=== PATIENT | female | born 1985 | race Caucasian/White ===

== ENCOUNTER 2016-08-12 13:47 | Emergency (ER) | payer OTHER, SELFPAY ==
[~2016-08-12 13:47] MED LIST: IRON18TA PO; MAGN250T2 PO; METO-346 PO; METO12TA PO; NORCOTAB PO; SENN1TAB2 PO; VITMTA PO; [UNRECOGNIZED DRUG - CODE] PO
--- NOTE | 2016-08-12 16:02 | REP ---
Clinical: Acute chest pain . Comparison: 06/14/2016. Technique: PA and lateral. Findings: The mediastinum and cardiac silhouette are normal. The lung mccullough are clear and without acute consolidation, effusion, or pneumothorax. The skeletal structures are intact and normal. Impression: 1. No acute cardiopulmonary process. Signed by Codey Garcia MD 08/12/2016 03:53 P
[2016-08-12 16:13] LABS: BASO # 0.1 K/mm3 (0.0-0.2); BASO % 0.9 % (0.0-1.0); EOS # 0.4 K/mm3 (0.0-0.50); EOS % 4.1 % (0.0-3.0); LARGE UNSTAINED CELL # 0.2 K/mm3 (0.0-0.4); LARGE UNSTAINED CELL % 1.7 % (0.0-4.0); LYMPH # 2.4 K/mm3 (1.5-4.5); LYMPH % 21.8 % (24.0-44.0); MEAN CORPUSCULAR HEMOGLOBIN 28.8 pg (27.0-33.0); MEAN CORPUSCULAR HGB CONC 34.1 g/dl (32.0-36.5); MEAN CORPUSCULAR VOLUME 84.3 fl (80.0-96.0); MONO # 0.5 K/mm3 (0.0-0.8); MONO % 4.5 % (0.0-5.0); NEUTROPHILS # 6.9 K/mm3 (1.8-7.7); PLATELET COUNT, AUTOMATED 227 k/mm3 (150-450); RED CELL DISTRIBUTION WIDTH 13.2 % (11.5-14.5); WHITE BLOOD COUNT 10.2 K/mm3 (4.0-10.0)
[2016-08-12 16:25] LABS: ANION GAP 8 MEQ/L (8-16); BLOOD UREA NITROGEN 13 MG/DL (7-18); CALCIUM LEVEL 8.7 MG/DL (8.5-10.1); CARBON DIOXIDE LEVEL 30 MEQ/L (21-32); CHLORIDE LEVEL 104 MEQ/L (98-107); GLOMERULAR FILTRATION RATE > 60.0 (>60); GLUCOSE, FASTING 83 MG/DL (70-105); POTASSIUM SERUM 3.9 MEQ/L (3.5-5.1); SODIUM LEVEL 142 MEQ/L (136-145)
--- NOTE | 2016-08-12 17:11 | EDDOCDS ---
Nurse's Notes [facility] Name: Nhi Linares Age: 31 yrs Sex: Female : 1985 Arrival Date: 08/12/2016 Time: 13:47 Bed I2 / M2 Private MD: Nargis Mari FNP Diagnosis: Chest pain, unspecified Presentation: 08/12 13:57 Presenting complaint: Patient states: chest pain on and off for several days. today kr3 episodes more frequent. reports history of long QT. Aspirin was not taken prior to arrival. Adult Sepsis Screening: The patient does not have new or worsening altered mentation. Patient's respiratory rate is less than 22. Systolic blood pressure is greater than 100. Patient has a qSOFA score of 0- Negative Sepsis Screen. Suicide/Homicide risk assessment- the patient denies having any suicidal and/or homicidal ideations and does not present with any other emotional, behavioral or mental health complaints. Status: Patient is not a fitness services manager or dependent. Transition of care: patient was not received from another setting of care. 13:57 Acuity: LEONARD Level 3 kr3 13:57 Method Of Arrival: Walkin/Carried/Asstd kr3 Triage Assessment: 14:00 General: Appears in no apparent distress, comfortable, Behavior is appropriate for age, kr3 cooperative. Pain: Location: left sided chest with radiation into back Pain currently is 5 out of 10 on a pain scale. HIV screening NA for this visit Offered previously. Cardiovascular: Chest pain is described as vague, radiates back episodes are intermittent began over several days. Respiratory: Respiratory effort is even, unlabored. GI: Denies nausea, vomiting. 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 Toprol XL 50 mg Oral Tb24 1 tab nightly (Last dose: 08/11/2016) 2. multivitamin Oral tab daily 3. Magnesium Oxide Oral daily 4. garlic oral cap daily - PMHx: gall stones; Hypertension; long QT syndrome; Pancreatitis; - PSHx: Cesearean Section; Tubal ligation; jesse right femur; Cholecystectomy; - Social history: Smoking status: Patient states former smoker of tobacco. No barriers to communication noted, The patient speaks fluent Fijian, Speaks appropriately for age. - Family history: Not pertinent. - : The pt / caregiver states he / she is not on anticoagulants. Home medication list is obtained from the patient. - Exposure Risk Screening:: None identified. Screenin:06 Screening information is obtained from the patient. Primary language is Fijian. Fall jam1 risk: No risks identified. Assistance ADL's: requires no assistance with activities of daily living. Abuse/DV Screen: The patient / caregiver reports he/she is: not in a situation that causes fear, pain or injury. Nutritional screening: No deficits noted. Exposure Risk Screening: None identified. Advance Directives: Currently, there is no health care proxy. There is no active DNR order. There is no living will. There is no Power of Nursing Attendant. Advance directive information has not previously been placed in an [facility] medical record. Further advance directive information is declined. home support is adequate. Assessment: 15:54 General: Appears in no apparent distress, well nourished, well groomed, Behavior is kpj appropriate for age, pleasant. Pain: Location: mid-sternal area Pain currently is 4 out of 10 on a pain scale. Pain radiates to left trapezius and left scapular area Quality of pain is described as aching. Neurological: Level of Consciousness is awake, alert, Oriented to person, place, time. Cardiovascular: Capillary refill < 3 seconds in bilateral fingers Edema is absent. Rhythm is sinus rhythm Chest pain quality is aching is located in substernal area radiates to left back neck. Respiratory: Airway is patent Respiratory effort is even, unlabored, Respiratory pattern is regular, symmetrical, Breath sounds are clear bilaterally. GI: Abdomen is non- distended Bowel sounds present X 4 quads. Abd is soft and non tender X 4 quads. Derm: Skin is pink, warm & dry. 16:35 Reassessment: Patient appears in no apparent distress at this time. Patient states kpj feeling better. Patient states symptoms have improved. 17:07 General: Appears in no apparent distress, comfortable, Behavior is appropriate for age, kpj pleasant. Pain: Denies pain. Neurological: Level of Consciousness is awake, alert, Oriented to person, place, time. Cardiovascular: Chest pain is denied. Respiratory: Airway is patent Respiratory effort is even, unlabored, Respiratory pattern is regular, symmetrical. Derm: Skin is pink, warm & dry. Vital Signs: 13:49 BP 143 / 74; Pulse 78; Resp 18 S; Temp 98.0(O); Pulse Ox 98% on R/A; Weight 90.72 kg gr2 (R); Height 5 ft. 10 in. (177.80 cm) (R); Pain 5/10; 15:46 BP 119 / 81; Pulse 65; Resp 18; Temp 98.4; Pulse Ox 98% ; Pain 4/10; jam1 16:53 BP 118 / 84; Pulse 64; Resp 20; Temp 98.6; Pulse Ox 98% ; Pain 2/10; jam1 13:49 Body Mass Index 28.70 (90.72 kg, 177.80 cm) gr2 Vitals: 13:49 Log In Time: August 12, 2016 at 13:49. RN notified that patient meets Red Flag gr2 criteria. ED Course: 13:49 Patient visited by Iam Hyatt. gr2 13:49 Nargis Mari is Private Physician. gr2 13:49 Patient moved to Waiting gr2 13:51 Patient visited by Iam Hyatt. gr2 13:53 Jadyn Ye,RN is Primary Nurse. kr3 13:53 Patient moved to PD2 / 27 kr3 13:58 Triage Initiated kr3 14:01 EKG done. (by ED staff). Reviewed by Edith Stanley MD. ar3 14:02 Patient visited by Trudy Johnston PCA. ar3 14:02 Patient moved to Pre RCE ar3 15:00 Patient moved to I2 / M2 kpj 15:06 Pt greeted and oriented to ED. Patient advised of names of staff involved in care, jam location of call avelar, wait times and NPO status. Patient has correct armband on for positive identification. Placed in gown. Bed in low position. Call light in reach. Side rails up X 1. Door closed. 15:13 [facility] ar2 15:13 Scott Mono MD is Attending Physician. ar2 15:13 Patient visited by Arnold Torres PA-C. ar2 15:51 [facility] Payment Agreement was scanned into [employer] and attached to record. ks16 15:54 Resting quietly. kpj 15:54 The patient / caregiver is instructed regarding the plan of care and ED course. Pulse kpj ox on. 15:54 CIP Sent. kpj 15:54 Magnesium Level Sent. kpj 15:54 MED Profile Sent. kpj 15:54 Troponin Sent. kpj 15:54 D-Dimer Quant Sent. kpj 15:54 CBC with Diff Sent. kpj 16:06 Chest, 2 View (pa\E\lat) Returned. EDMS 16:43 Gerardo Augustine is Referral Physician. ar2 17:07 No apparent distress. kpj 17:07 The patient / caregiver is instructed regarding the plan of care and ED course. kpj 17:07 No IV's were initiated during this patient's visit. No procedures done that require [facility] assistance. Order Results: Lab Order: CBC with Diff; SPEC'M 08/12/16 15:51 Test: WHITE BLOOD COUNT; Value: 10.2; Range: 4.0-10.0; Abnormal: Above high normal; Units: K/mm3; Status: F Test: RED BLOOD COUNT; Value: 4.69; Range: 4.00-5.40; Units: M/mm3; Status: F Test: HEMOGLOBIN; Value: 13.5; Range: 12.0-16.0; Units: g/dl; Status: F Test: HEMATOCRIT; Value: 39.5; Range: 36.0-47.0; Units: %; Status: F Test: MEAN CORPUSCULAR VOLUME; Value: 84.3; Range: 80.0-96.0; Units: fl; Status: F Test: MEAN CORPUSCULAR HEMOGLOBIN; Value: 28.8; Range: 27.0-33.0; Units: pg; Status: F Test: MEAN CORPUSCULAR HGB CONC; Value: 34.1; Range: 32.0-36.5; Units: g/dl; Status: F Test: RED CELL DISTRIBUTION WIDTH; Value: 13.2; Range: 11.5-14.5; Units: %; Status: F Test: PLATELET COUNT, AUTOMATED; Value: 227; Range: 150-450; Units: k/mm3; Status: F Test: NEUTROPHILS %; Value: 67.0; Range: 36.0-66.0; Abnormal: Above high normal; Units: %; Status: F Test: LYMPH %; Value: 21.8; Range: 24.0-44.0; Abnormal: Below low normal; Units: %; Status: F Test: MONO %; Value: 4.5; Range: 0.0-5.0; Units: %; Status: F Test: EOS %; Value: 4.1; Range: 0.0-3.0; Abnormal: Above high normal; Units: %; Status: F Test: BASO %; Value: 0.9; Range: 0.0-1.0; Units: %; Status: F Test: LARGE UNSTAINED CELL %; Value: 1.7; Range: 0.0-4.0; Units: %; Status: F Test: NEUTROPHILS #; Value: 6.9; Range: 1.8-7.7; Units: K/mm3; Status: F Test: LYMPH #; Value: 2.4; Range: 1.5-4.5; Units: K/mm3; Status: F Test: MONO #; Value: 0.5; Range: 0.0-0.8; Units: K/mm3; Status: F Test: EOS #; Value: 0.4; Range: 0.0-0.50; Units: K/mm3; Status: F Test: BASO #; Value: 0.1; Range: 0.0-0.2; Units: K/mm3; Status: F Test: LARGE UNSTAINED CELL #; Value: 0.2; Range: 0.0-0.4; Units: K/mm3; Status: F Lab Order: D-Dimer Quant; SPEC'M 08/12/16 15:51 Test: D-DIMER QUANT; Value: < 270.0; Range: <500; Units: ng/ml; Status: F Lab Order: Troponin; SPEC'M 08/12/16 15:51 Test: TROPONIN I; Value: < 0.02; Range: < 0.10; Units: NG/ML; Status: F Test Note: ; Troponin I Reference Interval for [employer] LOCI: 99th Percentile= 0.00-0.045 ng/ml Risk Stratification: <= 0.10 ng/ml Decreased Risk for Adverse Clinical Events. 0.10-1.50 ng/ml Increased Risk for Adverse Clinical Events. Evaluation of additional criterion and/or repeat testing in 2-6 hours is suggested to rule out myocardial damage. >= 1.50 ng/ml Indicative of Myocardial Injury. Lab Order: MED Profile; SPEC'M 08/12/16 15:51 Test: GLUCOSE, FASTING; Value: 83; Range: 70-105; Units: MG/DL; Status: F Test: BLOOD UREA NITROGEN; Value: 13; Range: 7-18; Units: MG/DL; Status: F Test: CREATININE FOR GFR; Value: 0.60; Range: 0.55-1.02; Units: MG/DL; Status: F Test: GLOMERULAR FILTRATION RATE; Value: > 60.0; Range: >60; Status: F Test: SODIUM LEVEL; Value: 142; Range: 136-145; Units: MEQ/L; Status: F Test: POTASSIUM SERUM; Value: 3.9; Range: 3.5-5.1; Units: MEQ/L; Status: F Test: CHLORIDE LEVEL; Value: 104; Range: 98-107; Units: MEQ/L; Status: F Test: CARBON DIOXIDE LEVEL; Value: 30; Range: 21-32; Units: MEQ/L; Status: F Test: ANION GAP; Value: 8; Range: 8-16; Units: MEQ/L; Status: F Test: CALCIUM LEVEL; Value: 8.7; Range: 8.5-10.1; Units: MG/DL; Status: F Test Note: ; Units are mL/min/1.73 m2 Chronic Kidney Disease Staging per NKF: Stage I & II GFR >=60 Normal to Mildly Decreased Stage III GFR 30-59 Moderately Decreased Stage IV GFR 15-29 Severely Decreased Stage V GFR <15 Very Little GFR Left ESRD GFR <15 on SPECIFICATIONS WRITER Lab Order: Magnesium Level; SPEC'M 08/12/16 15:51 Test: MAGNESIUM LEVEL; Value: 2.0; Range: 1.8-2.4; Units: MG/DL; Status: F Lab Order: CIP; SPEC'08/12/16 15:51 Test: CPK CREATINE PHOSPHOKINASE; Value: 37; Range: 26-192; Units: U/L; Status: F Test: CK-MB VALUE MASS; Value: 1.1; Range: 0.0-3.6; Units: NG/ML; Status: F Test: MB/CK RELATIVE INDEX; Value: 2.97; Range: < OR =4; Status: F Test Note: ; DIAGNOSIS CRITERIA MMB ng/ml Relative Index (RI) NON-AMI < or = 5 N/A MURILLO ZONE > 5 < or = 4 AMI > 5 > 4 Radiology Order: Chest, 2 View (pa\E\lat) Test: Chest, 2 View (pa\E\lat) REASON FOR EXAMINATION: central chest pain; Clinical: Acute chest pain .; ; Comparison: 06/14/2016.; ; Technique: PA and lateral.; ; Findings:; The mediastinum and cardiac silhouette are normal. The lung mccullough are clear and; without acute consolidation, effusion, or pneumothorax. The skeletal structures; are intact and normal.; ; Impression:; 1. No acute cardiopulmonary process.; ; ; Signed by; Codey Garcia MD 08/12/2016 03:53 P; Outcome: 16:44 Discharge ordered by Provider. ar2 17:07 Discharge Assessment: Patient awake, alert and oriented x 3. No cognitive and/or j functional deficits noted. Patient verbalized understanding of disposition instructions. patient administered narcotics - no. The following High Risk Discharge criteria are identified: None. Discharged to home ambulatory. Condition: stable. No special radiology studies were completed. Property sent home with patient. referral to cardiology faxed to Dr Augustine's office per his request.:. 17:10 Patient left the ED. [facility] Signatures: Dispatcher [employer] EDMS Rebecca Mccarthy RN RN kpj Tatum Lau, PUBLIC HEALTH ASSISTANT PUBLIC HEALTH ASSISTANT jam1 Jadyn YeRN RN melo3 Arnold Torres PA-C PA-C ar2 Trudy Johnston, PUBLIC HEALTH ASSISTANT PUBLIC HEALTH ASSISTANT ar3 Iam Hyatt gr2 Lizz Mendoza, Reg Reg ks16 MTDD
--- NOTE | 2016-08-12 17:12 | EDDOCDS ---
Physician Documentation [facility] Name: Nhi Linares Age: 31 yrs Sex: Female : 1985 Arrival Date: 08/12/2016 Time: 13:47 Bed I2 / M2 Private MD: Nargis Mari FNP Disposition: 08/12/16 16:44 Discharged to Home/Self Care. Impression: Chest pain, unspecified. - Condition is Stable. - Discharge Instructions: Nonspecific Chest Pain. - Medication Reconciliation, Local Pharmacy Hours form. - Follow up: Gerardo Augustine; When: Call to arrange an appointment; Reason: Further diagnostic work-up, Recheck today's complaints. Follow up: Emergency Department; When: As needed; Reason: Trouble breathing, Worsening of conditions, persisent severe chest pain, palpitations causing dizziness. - Problem is new. - Symptoms have improved. - Notes: call for follow up, continue home medications Historical: - Allergies: Amoxicillin (Unknown); PENICILLINS (Unknown); - Home Meds: 1. Toprol XL 50 mg Oral Tb24 1 tab nightly (Last dose: 08/11/2016) 2. multivitamin Oral tab daily 3. Magnesium Oxide Oral daily 4. garlic oral cap daily - PMHx: gall stones; Hypertension; long QT syndrome; Pancreatitis; - PSHx: Cesearean Section; Tubal ligation; jesse right femur; Cholecystectomy; - Social history: Smoking status: Patient states former smoker of tobacco. No barriers to communication noted, The patient speaks fluent Turkish, Speaks appropriately for age. - Family history: Not pertinent. - : The pt / caregiver states he / she is not on anticoagulants. Home medication list is obtained from the patient. - Exposure Risk Screening:: None identified. 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 10 in. (177.80 cm) (R); Pain 5/10; 15:46 BP 119 / 81; Pulse 65; Resp 18; Temp 98.4; Pulse Ox 98% ; Pain 4/10; jam1 16:53 BP 118 / 84; Pulse 64; Resp 20; Temp 98.6; Pulse Ox 98% ; Pain 2/10; jam1 13:49 Body Mass Index 28.70 (90.72 kg, 177.80 cm) gr2 MDM: 13:55 ECG WITH READING ER PHYS+CARDIAG ordered. EDMS 15:25 Pulse ox continuous ordered. ar2 15:26 Chest, 2 View (pa\E\lat) Ordered. EDMS 15:26 CBC with Diff Ordered. EDMS 15:26 D-Dimer Quant Ordered. EDMS 15:26 Troponin Ordered. EDMS 15:26 MED Profile Ordered. EDMS 15:26 Magnesium Level Ordered. EDMS 15:26 CIP Ordered. EDMS 15:49 Financial registration complete. ks16 15:51 [facility] Payment Agreement was scanned into [employer] and attached to record. ks16 16:29 CBC with Diff Reviewed. ar2 16:29 D-Dimer Quant Reviewed. ar2 16:29 Troponin Reviewed. ar2 16:29 MED Profile Reviewed. ar2 16:29 Magnesium Level Reviewed. ar2 16:29 CIP Reviewed. ar2 16:29 Chest, 2 View (pa\E\lat) Reviewed. ar2 Signatures: Dispatcher [employer] EDMS Rebecca Mccarthy RN RN kpj Robie, Kathleen, RN RN kr3 Arnold Torres PA-C PA-C ar2 Lizz Mendoza, Reg Reg ks16 The chart was reviewed and I authenticate all verbal orders and agree with the evaluation and treatment provided.Attachments: 15:51 [facility] Payment Agreement ks16 MTDD
--- NOTE | 2016-08-13 08:34 | ECGEPIP ---
Stationary ECG Study [facility] - ED Test Date: 2016-08-12 Pat Name: ALEX RIVAS Department: Room: - Gender: F Automatic Developer: joyce : 1985 Requested By: Scott Conroy Order Number: [id number] Reading MD: Scott Moon Measurements Intervals [place] Rate: 66 P: 66 TX: 152 QRS: 35 QRSD: 104 T: 28 QT: 429 QTc: 453 Interpretive Statements SINUS RHYTHM Electronically Signed On 08-13-2016 8:33:46 EST by Scott Moon
--- NOTE | 2016-08-14 18:12 | EDDOCDS ---
Physician Documentation [facility] Name: Nhi Linares Age: 31 yrs Sex: Female : 1985 Arrival Date: 08/12/2016 Time: 13:47 Bed I2 / M2 Private MD: Nargis Mari FNP Disposition: 08/12/16 16:44 Discharged to Home/Self Care. Impression: Chest pain, unspecified. - Condition is Stable. - Discharge Instructions: Nonspecific Chest Pain. - Medication Reconciliation, Local Pharmacy Hours form. - Follow up: Gerardo Augustine; When: Call to arrange an appointment; Reason: Further diagnostic work-up, Recheck today's complaints. Follow up: Emergency Department; When: As needed; Reason: Trouble breathing, Worsening of conditions, persisent severe chest pain, palpitations causing dizziness. - Problem is new. - Symptoms have improved. - Notes: call for follow up, continue home medications Historical: - Allergies: Amoxicillin (Unknown); PENICILLINS (Unknown); - Home Meds: 1. Toprol XL 50 mg Oral Tb24 1 tab nightly (Last dose: 08/11/2016) 2. multivitamin Oral tab daily 3. Magnesium Oxide Oral daily 4. garlic oral cap daily - PMHx: gall stones; Hypertension; long QT syndrome; Pancreatitis; - PSHx: Cesearean Section; Tubal ligation; jesse right femur; Cholecystectomy; - Social history: Smoking status: Patient states former smoker of tobacco. No barriers to communication noted, The patient speaks fluent Marshallese, Speaks appropriately for age. - Family history: Not pertinent. - : The pt / caregiver states he / she is not on anticoagulants. Home medication list is obtained from the patient. - Exposure Risk Screening:: None identified. 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 10 in. (177.80 cm) (R); Pain 5/10; 15:46 BP 119 / 81; Pulse 65; Resp 18; Temp 98.4; Pulse Ox 98% ; Pain 4/10; jam1 16:53 BP 118 / 84; Pulse 64; Resp 20; Temp 98.6; Pulse Ox 98% ; Pain 2/10; jam1 13:49 Body Mass Index 28.70 (90.72 kg, 177.80 cm) gr2 MDM: 13:55 ECG WITH READING ER PHYS+CARDIAG ordered. EDMS 15:25 Pulse ox continuous ordered. ar2 15:26 Chest, 2 View (pa\E\lat) Ordered. EDMS 15:26 CBC with Diff Ordered. EDMS 15:26 D-Dimer Quant Ordered. EDMS 15:26 Troponin Ordered. EDMS 15:26 MED Profile Ordered. EDMS 15:26 Magnesium Level Ordered. EDMS 15:26 CIP Ordered. EDMS 15:49 Financial registration complete. ks 15:51 [facility] Payment Agreement was scanned into [employer] and attached to record. ks16 16:29 CBC with Diff Reviewed. ar2 16:29 D-Dimer Quant Reviewed. ar2 16:29 Troponin Reviewed. ar2 16:29 MED Profile Reviewed. ar2 16:29 Magnesium Level Reviewed. ar2 16:29 CIP Reviewed. ar2 16:29 Chest, 2 View (pa\E\lat) Reviewed. ar2 08/13 09:38 T-Sheet-- Draft Copy was scanned into [employer] and attached to record. klr 14:14 ECG/EKG was scanned into [employer] and attached to record. gb Signatures: Dispatcher [employer] EDLA Rebecca Mccarthy RN RN kpj Barnhardt, Gloria, Reg Reg gb Jadyn Ye RN RN kr3 Arnold Torres PA-C PAIsela ar2 Lizz Mendoza, Reg Reg ks16 Brenda Bolton The chart was reviewed and I authenticate all verbal orders and agree with the evaluation and treatment provided.Attachments: 08/12 15:51 [facility] Payment Agreement ks16 08/13 09:38 T-Sheet-- Draft Copy klr 14:14 ECG/EKG gb Chart Complete MTDD
--- NOTE | 2016-08-14 18:12 | EDDOCDS ---
Physician Documentation [facility] Name: Nhi Linares Age: 31 yrs Sex: Female : 1985 Arrival Date: 08/12/2016 Time: 13:47 Bed I2 / M2 Private MD: Nargis Mari FNP Disposition: 08/12/16 16:44 Discharged to Home/Self Care. Impression: Chest pain, unspecified. - Condition is Stable. - Discharge Instructions: Nonspecific Chest Pain. - Medication Reconciliation, Local Pharmacy Hours form. - Follow up: Gerardo Augustine; When: Call to arrange an appointment; Reason: Further diagnostic work-up, Recheck today's complaints. Follow up: Emergency Department; When: As needed; Reason: Trouble breathing, Worsening of conditions, persisent severe chest pain, palpitations causing dizziness. - Problem is new. - Symptoms have improved. - Notes: call for follow up, continue home medications Historical: - Allergies: Amoxicillin (Unknown); PENICILLINS (Unknown); - Home Meds: 1. Toprol XL 50 mg Oral Tb24 1 tab nightly (Last dose: 08/11/2016) 2. multivitamin Oral tab daily 3. Magnesium Oxide Oral daily 4. garlic oral cap daily - PMHx: gall stones; Hypertension; long QT syndrome; Pancreatitis; - PSHx: Cesearean Section; Tubal ligation; jesse right femur; Cholecystectomy; - Social history: Smoking status: Patient states former smoker of tobacco. No barriers to communication noted, The patient speaks fluent Italian, Speaks appropriately for age. - Family history: Not pertinent. - : The pt / caregiver states he / she is not on anticoagulants. Home medication list is obtained from the patient. - Exposure Risk Screening:: None identified. 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 10 in. (177.80 cm) (R); Pain 5/10; 15:46 BP 119 / 81; Pulse 65; Resp 18; Temp 98.4; Pulse Ox 98% ; Pain 4/10; jam1 16:53 BP 118 / 84; Pulse 64; Resp 20; Temp 98.6; Pulse Ox 98% ; Pain 2/10; jam1 13:49 Body Mass Index 28.70 (90.72 kg, 177.80 cm) gr2 MDM: 13:55 ECG WITH READING ER PHYS+CARDIAG ordered. EDMS 15:25 Pulse ox continuous ordered. ar2 15:26 Chest, 2 View (pa\E\lat) Ordered. EDMS 15:26 CBC with Diff Ordered. EDMS 15:26 D-Dimer Quant Ordered. EDMS 15:26 Troponin Ordered. EDMS 15:26 MED Profile Ordered. EDMS 15:26 Magnesium Level Ordered. EDMS 15:26 CIP Ordered. EDMS 15:49 Financial registration complete. ks 15:51 [facility] Payment Agreement was scanned into [employer] and attached to record. ks16 16:29 CBC with Diff Reviewed. ar2 16:29 D-Dimer Quant Reviewed. ar2 16:29 Troponin Reviewed. ar2 16:29 MED Profile Reviewed. ar2 16:29 Magnesium Level Reviewed. ar2 16:29 CIP Reviewed. ar2 16:29 Chest, 2 View (pa\E\lat) Reviewed. ar2 08/13 09:38 T-Sheet-- Draft Copy was scanned into [employer] and attached to record. klr 14:14 ECG/EKG was scanned into [employer] and attached to record. gb Signatures: Dispatcher [employer] EDNE Rebecca Mccarthy RN RN kpj Barnhardt, Gloria, Reg Reg gb Jadyn Ye RN RN kr3 Arnold Torres PA-C PAIsela ar2 Lizz Mendoza, Reg Reg ks16 Brenda Bolton The chart was reviewed and I authenticate all verbal orders and agree with the evaluation and treatment provided.Attachments: 08/12 15:51 [facility] Payment Agreement [email or web address] 08/13 09:38 T-Sheet-- Draft Copy klr 14:14 ECG/EKG gb Chart Complete MTDD
--- NOTE | 2016-08-14 18:12 | EDDOCDS ---
Nurse's Notes [facility] Name: Alex Rivas Age: 31 yrs Sex: Female : 1985 Arrival Date: 08/12/2016 Time: 13:47 Bed I2 / M2 Private MD: Nargis Mari FNP Diagnosis: Chest pain, unspecified Presentation: 08/12 13:57 Presenting complaint: Patient states: chest pain on and off for several days. today kr3 episodes more frequent. reports history of long QT. Aspirin was not taken prior to arrival. Adult Sepsis Screening: The patient does not have new or worsening altered mentation. Patient's respiratory rate is less than 22. Systolic blood pressure is greater than 100. Patient has a qSOFA score of 0- Negative Sepsis Screen. Suicide/Homicide risk assessment- the patient denies having any suicidal and/or homicidal ideations and does not present with any other emotional, behavioral or mental health complaints. Status: Patient is not a lab support service tech or dependent. Transition of care: patient was not received from another setting of care. 13:57 Acuity: LEONARD Level 3 kr3 13:57 Method Of Arrival: Walkin/Carried/Asstd kr3 Triage Assessment: 14:00 General: Appears in no apparent distress, comfortable, Behavior is appropriate for age, kr3 cooperative. Pain: Location: left sided chest with radiation into back Pain currently is 5 out of 10 on a pain scale. HIV screening NA for this visit Offered previously. Cardiovascular: Chest pain is described as vague, radiates back episodes are intermittent began over several days. Respiratory: Respiratory effort is even, unlabored. GI: Denies nausea, vomiting. PUBLISHING DIRECTOR: 14:00 LMP 07/28/2016 kr3 Historical: - Allergies: Amoxicillin (Unknown); PENICILLINS (Unknown); - Home Meds: 1. Toprol XL 50 mg Oral Tb24 1 tab nightly (Last dose: 08/11/2016) 2. multivitamin Oral tab daily 3. Magnesium Oxide Oral daily 4. garlic oral cap daily - PMHx: gall stones; Hypertension; long QT syndrome; Pancreatitis; - PSHx: Cesearean Section; Tubal ligation; jesse right femur; Cholecystectomy; - Social history: Smoking status: Patient states former smoker of tobacco. No barriers to communication noted, The patient speaks fluent Bruneian, Speaks appropriately for age. - Family history: Not pertinent. - : The pt / caregiver states he / she is not on anticoagulants. Home medication list is obtained from the patient. - Exposure Risk Screening:: None identified. Screenin:06 Screening information is obtained from the patient. Primary language is Bruneian. Fall jam1 risk: No risks identified. Assistance ADL's: requires no assistance with activities of daily living. Abuse/DV Screen: The patient / caregiver reports he/she is: not in a situation that causes fear, pain or injury. Nutritional screening: No deficits noted. Exposure Risk Screening: None identified. Advance Directives: Currently, there is no health care proxy. There is no active DNR order. There is no living will. There is no Power of Credit Verification Clerk. Advance directive information has not previously been placed in an [facility] medical record. Further advance directive information is declined. home support is adequate. Assessment: 15:54 General: Appears in no apparent distress, well nourished, well groomed, Behavior is kpj appropriate for age, pleasant. Pain: Location: mid-sternal area Pain currently is 4 out of 10 on a pain scale. Pain radiates to left trapezius and left scapular area Quality of pain is described as aching. Neurological: Level of Consciousness is awake, alert, Oriented to person, place, time. Cardiovascular: Capillary refill < 3 seconds in bilateral fingers Edema is absent. Rhythm is sinus rhythm Chest pain quality is aching is located in substernal area radiates to left back neck. Respiratory: Airway is patent Respiratory effort is even, unlabored, Respiratory pattern is regular, symmetrical, Breath sounds are clear bilaterally. GI: Abdomen is non- distended Bowel sounds present X 4 quads. Abd is soft and non tender X 4 quads. Derm: Skin is pink, warm & dry. 16:35 Reassessment: Patient appears in no apparent distress at this time. Patient states kpj feeling better. Patient states symptoms have improved. 17:07 General: Appears in no apparent distress, comfortable, Behavior is appropriate for age, kpj pleasant. Pain: Denies pain. Neurological: Level of Consciousness is awake, alert, Oriented to person, place, time. Cardiovascular: Chest pain is denied. Respiratory: Airway is patent Respiratory effort is even, unlabored, Respiratory pattern is regular, symmetrical. Derm: Skin is pink, warm & dry. Vital Signs: 13:49 BP 143 / 74; Pulse 78; Resp 18 S; Temp 98.0(O); Pulse Ox 98% on R/A; Weight 90.72 kg gr2 (R); Height 5 ft. 10 in. (177.80 cm) (R); Pain 5/10; 15:46 BP 119 / 81; Pulse 65; Resp 18; Temp 98.4; Pulse Ox 98% ; Pain 4/10; jam1 16:53 BP 118 / 84; Pulse 64; Resp 20; Temp 98.6; Pulse Ox 98% ; Pain 2/10; jam1 13:49 Body Mass Index 28.70 (90.72 kg, 177.80 cm) gr2 Vitals: 13:49 Log In Time: August 12, 2016 at 13:49. RN notified that patient meets Red Flag gr2 criteria. ED Course: 13:49 Patient visited by Iam Hyatt. gr2 13:49 Nargis Mari is Private Physician. gr2 13:49 Patient moved to Waiting gr2 13:51 Patient visited by Iam Hyatt. gr2 13:53 Jadyn Ye,RN is Primary Nurse. kr3 13:53 Patient moved to PD2 / 27 kr3 13:58 Triage Initiated kr3 14:01 EKG done. (by ED staff). Reviewed by Edith Stanley MD. ar3 14:02 Patient visited by Trudy Johnston PCA. ar3 14:02 Patient moved to Pre RCE ar3 15:00 Patient moved to I2 / M2 kpj 15:06 Pt greeted and oriented to ED. Patient advised of names of staff involved in care, jam location of call avelar, wait times and NPO status. Patient has correct armband on for positive identification. Placed in gown. Bed in low position. Call light in reach. Side rails up X 1. Door closed. 15:13 [facility] ar2 15:13 Scott Moon MD is Attending Physician. ar2 15:13 Patient visited by Arnold Torres PA-C. ar2 15:51 [facility] [place] was [place] into [employer] and attached to record. ks16 15:54 Resting quietly. kpj 15:54 The patient / caregiver is instructed regarding the plan of care and ED course. Pulse kpj ox on. 15:54 CIP Sent. kpj 15:54 Magnesium Level Sent. kpj 15:54 MED Profile Sent. kpj 15:54 Troponin Sent. kpj 15:54 D-Dimer Quant Sent. kpj 15:54 CBC with Diff Sent. kpj 16:06 Chest, 2 View (pa\E\lat) Returned. EDMS 16:43 Gerardo Augustine is Referral Physician. ar2 17:07 No apparent distress. kpj 17:07 The patient / caregiver is instructed regarding the plan of care and ED course. kpj 17:07 No IV's were initiated during this patient's visit. No procedures done that require [facility] assistance. 08/13 08:51 EKG-ADULT Returned. EDMS 09:38 T-Sheet-- Draft Copy was scanned into Singular and attached to record. klr 14:14 ECG/EKG was scanned into [employer] and attached to record. gb Order Results: Lab Order: CBC with Diff; SPEC'M 08/12/16 15:51 Test: WHITE BLOOD COUNT; Value: 10.2; Range: 4.0-10.0; Abnormal: Above high normal; Units: K/mm3; Status: F Test: RED BLOOD COUNT; Value: 4.69; Range: 4.00-5.40; Units: M/mm3; Status: F Test: HEMOGLOBIN; Value: 13.5; Range: 12.0-16.0; Units: g/dl; Status: F Test: HEMATOCRIT; Value: 39.5; Range: 36.0-47.0; Units: %; Status: F Test: MEAN CORPUSCULAR VOLUME; Value: 84.3; Range: 80.0-96.0; Units: fl; Status: F Test: MEAN CORPUSCULAR HEMOGLOBIN; Value: 28.8; Range: 27.0-33.0; Units: pg; Status: F Test: MEAN CORPUSCULAR HGB CONC; Value: 34.1; Range: 32.0-36.5; Units: g/dl; Status: F Test: RED CELL DISTRIBUTION WIDTH; Value: 13.2; Range: 11.5-14.5; Units: %; Status: F Test: PLATELET COUNT, AUTOMATED; Value: 227; Range: 150-450; Units: k/mm3; Status: F Test: NEUTROPHILS %; Value: 67.0; Range: 36.0-66.0; Abnormal: Above high normal; Units: %; Status: F Test: LYMPH %; Value: 21.8; Range: 24.0-44.0; Abnormal: Below low normal; Units: %; Status: F Test: MONO %; Value: 4.5; Range: 0.0-5.0; Units: %; Status: F Test: EOS %; Value: 4.1; Range: 0.0-3.0; Abnormal: Above high normal; Units: %; Status: F Test: BASO %; Value: 0.9; Range: 0.0-1.0; Units: %; Status: F Test: LARGE UNSTAINED CELL %; Value: 1.7; Range: 0.0-4.0; Units: %; Status: F Test: NEUTROPHILS #; Value: 6.9; Range: 1.8-7.7; Units: K/mm3; Status: F Test: LYMPH #; Value: 2.4; Range: 1.5-4.5; Units: K/mm3; Status: F Test: MONO #; Value: 0.5; Range: 0.0-0.8; Units: K/mm3; Status: F Test: EOS #; Value: 0.4; Range: 0.0-0.50; Units: K/mm3; Status: F Test: BASO #; Value: 0.1; Range: 0.0-0.2; Units: K/mm3; Status: F Test: LARGE UNSTAINED CELL #; Value: 0.2; Range: 0.0-0.4; Units: K/mm3; Status: F Lab Order: D-Dimer Quant; SPEC'M 08/12/16 15:51 Test: D-DIMER QUANT; Value: < 270.0; Range: <500; Units: ng/ml; Status: F Lab Order: Troponin; SPEC'M 08/12/16 15:51 Test: TROPONIN I; Value: < 0.02; Range: < 0.10; Units: NG/ML; Status: F Test Note: ; Troponin I Reference Interval for Siemens [place] LOCI: 99th Percentile= 0.00-0.045 ng/ml Risk Stratification: <= 0.10 ng/ml Decreased Risk for Adverse Clinical Events. 0.10-1.50 ng/ml Increased Risk for Adverse Clinical Events. Evaluation of additional criterion and/or repeat testing in 2-6 hours is suggested to rule out myocardial damage. >= 1.50 ng/ml Indicative of Myocardial Injury. Lab Order: MED Profile; SPEC'08/12/16 15:51 Test: GLUCOSE, FASTING; Value: 83; Range: 70-105; Units: MG/DL; Status: F Test: BLOOD UREA NITROGEN; Value: 13; Range: 7-18; Units: MG/DL; Status: F Test: CREATININE FOR GFR; Value: 0.60; Range: 0.55-1.02; Units: MG/DL; Status: F Test: GLOMERULAR FILTRATION RATE; Value: > 60.0; Range: >60; Status: F Test: SODIUM LEVEL; Value: 142; Range: 136-145; Units: MEQ/L; Status: F Test: POTASSIUM SERUM; Value: 3.9; Range: 3.5-5.1; Units: MEQ/L; Status: F Test: CHLORIDE LEVEL; Value: 104; Range: 98-107; Units: MEQ/L; Status: F Test: CARBON DIOXIDE LEVEL; Value: 30; Range: 21-32; Units: MEQ/L; Status: F Test: ANION GAP; Value: 8; Range: 8-16; Units: MEQ/L; Status: F Test: CALCIUM LEVEL; Value: 8.7; Range: 8.5-10.1; Units: MG/DL; Status: F Test Note: ; Units are mL/min/1.73 m2 Chronic Kidney Disease Staging per NKF: Stage I & II GFR >=60 Normal to Mildly Decreased Stage III GFR 30-59 Moderately Decreased Stage IV GFR 15-29 Severely Decreased Stage V GFR <15 Very Little GFR Left ESRD GFR <15 on COREMAKER SUPERVISOR Lab Order: Magnesium Level; SPEC'08/12/16 15:51 Test: MAGNESIUM LEVEL; Value: 2.0; Range: 1.8-2.4; Units: MG/DL; Status: F Lab Order: CIP; SPEC'08/12/16 15:51 Test: CPK CREATINE PHOSPHOKINASE; Value: 37; Range: 26-192; Units: U/L; Status: F Test: CK-MB VALUE MASS; Value: 1.1; Range: 0.0-3.6; Units: NG/ML; Status: F Test: MB/CK RELATIVE INDEX; Value: 2.97; Range: < OR =4; Status: F Test Note: ; DIAGNOSIS CRITERIA MMB ng/ml Relative Index (RI) NON-AMI < or = 5 N/A MURILLO ZONE > 5 < or = 4 AMI > 5 > 4 Radiology Order: EKG-ADULT Test: EKG-ADULT REASON FOR EXAMINATION: Chest Pain; Stationary ECG Study; [facility] - ED; ; Test Date: 2016-08-12; Pat Name: ALEX RIVAS Department:; Room: -; Gender: F 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 The lung mccullough are clear and; without acute consolidation, effusion, or pneumothorax. The skeletal structures; are intact and normal.; ; Impression:; 1. No acute cardiopulmonary process.; ; ; Signed by; Codey Garcia MD 08/12/2016 03:53 P; Outcome: 08/12 16:44 Discharge ordered by Provider. ar2 17:07 Discharge Assessment: Patient awake, alert and oriented x 3. No cognitive and/or kpj functional deficits noted. Patient verbalized understanding of disposition instructions. patient administered narcotics - no. The following High Risk Discharge criteria are identified: None. Discharged to home ambulatory. Condition: stable. No special radiology studies were completed. Property sent home with patient. referral to cardiology faxed to Dr Augustine's office per his request.:. 17:10 Patient left the ED. [facility] Signatures: Dispatcher [employer] EDMS Rebecca Mccarthy, RN RN j Tatum Lau, PATTERN SHOP SUPERVISOR PATTERN SHOP SUPERVISOR jam1 Miranda Wagner, Reg Reg gb Jadyn Ye RN RN kr3 Arnold Torres, WILLIAM PAIsela ar2 Trudy Johnston, PATTERN SHOP SUPERVISOR PATTERN SHOP SUPERVISOR ar3 Iam Hyatt gr2 Lizz Mendoza, Reg Reg ks16 Brenda Bolton Chart Complete MTDD
== END 2016-08-12 17:10 | disposition home or self-care (01) ==
LOC: M ED 13:47
DX: R07.9 Chest pain, unspecified (principal); I10 Essential (primary) hypertension; I45.81 Long QT syndrome; Z79.899 Other long term (current) drug therapy; Z88.0 Allergy status to penicillin; Z87.891 Personal history of nicotine dependence

== ENCOUNTER 2016-09-18 12:14 | Emergency (ER) | payer OTHER ==
[~2016-09-18] VITALS: Ht 180.3 cm; Wt 93.0 kg
[2016-09-18] MEDS ORDERED: METO37.5 PO (12:26)
[2016-09-18] MEDS ORDERED: DULO30CA PO (12:26)
--- NOTE | 2016-09-18 13:41 | REP ---
Clinical: Left calf pain . Technique: Watson scale and color Doppler evaluation using linear high frequency transducer. Findings: Ultrasound examination of the left lower extremity deep venous structures from the common femoral vein to the popliteal vein demonstrates normal compressibility flow and wave patterns in response to respiration and augmentation. There is no evidence for deep venous thrombosis. Impression: No evidence for deep venous thrombosis. Signed by Codey Garcia MD 09/18/2016 01:32 P
[2016-09-18 14:24] VITALS: BP 128/81
== END 2016-09-18 14:24 | disposition home or self-care (01) ==
LOC: M ED 12:43
DX: S86.112A Strain of other muscle(s) and tendon(s) of posterior muscle group at lower leg level, left leg, initial encounter (principal); X58.XXXA Exposure to other specified factors, initial encounter; Y92.89 Other specified places as the place of occurrence of the external cause; Y93.89 Activity, other specified; Y99.8 Other external cause status; Z87.891 Personal history of nicotine dependence; Z88.0 Allergy status to penicillin; Z79.899 Other long term (current) drug therapy; I10 Essential (primary) hypertension; Z87.442 Personal history of urinary calculi

== ENCOUNTER 2016-11-22 16:26 | Emergency (ER) | payer OTHER ==
[~2016-11-22] VITALS: Ht 177.8 cm; Wt 95.3 kg
[~2016-11-22 16:26] MED LIST changes: +DULO30CA PO; +METO37.5 PO
[2016-11-22] MEDS ORDERED: DOXY100T (16:32)
[2016-11-22] MEDS ORDERED: ONDANSETRON 4MG/2ML VIAL (J2405) IV ONE (17:00)
[2016-11-22] MEDS ORDERED: KETOROLAC 30 MG/ML VIAL (J1885) IV ONE (17:00)
[2016-11-22] MEDS ORDERED: NS 1,000 ML IV ONE (17:00)
[2016-11-22 17:16] LABS: BASO # 0.1 K/mm3 (0.0-0.2); EOS # 0.6 K/mm3 (0.0-0.50); EOS % 5.1 % (0.0-3.0); LARGE UNSTAINED CELL # 0.1 K/mm3 (0.0-0.4); LARGE UNSTAINED CELL % 1.2 % (0.0-4.0); LYMPH # 3.1 K/mm3 (1.5-4.5); LYMPH % 28.8 % (24.0-44.0); MEAN CORPUSCULAR HEMOGLOBIN 28.7 pg (27.0-33.0); MEAN CORPUSCULAR HGB CONC 34.6 g/dl (32.0-36.5); MEAN CORPUSCULAR VOLUME 83.1 fl (80.0-96.0); MONO # 0.5 K/mm3 (0.0-0.8); MONO % 4.5 % (0.0-5.0); NEUTROPHILS # 6.5 K/mm3 (1.8-7.7); NEUTROPHILS % 59.4 % (36.0-66.0); PLATELET COUNT, AUTOMATED 260 k/mm3 (150-450); RED CELL DISTRIBUTION WIDTH 13.7 % (11.5-14.5); WHITE BLOOD COUNT 10.9 K/mm3 (4.0-10.0)
[2016-11-22 17:43] LABS: ALBUMIN 3.6 GM/DL (3.2-5.2); ALBUMIN/GLOBULIN RATIO 0.97 (1.00-1.93); ALKALINE PHOSPHATASE 82 U/L (45-117); ALT/SGPT 29 U/L (12-78); ANION GAP 7 MEQ/L (8-16); AST/SGOT 20 U/L (15-37); BILIRUBIN,DIRECT < 0.1 MG/DL (0.0-0.2); BILIRUBIN,TOTAL 0.3 MG/DL (0.2-1.0); BLOOD UREA NITROGEN 9 MG/DL (7-18); CALCIUM LEVEL 8.5 MG/DL (8.5-10.1); CARBON DIOXIDE LEVEL 27 MEQ/L (21-32); CHLORIDE LEVEL 108 MEQ/L (98-107); CREATININE FOR GFR 0.66 MG/DL (0.55-1.02); GLOMERULAR FILTRATION RATE > 60.0 (>60); GLUCOSE, FASTING 106 MG/DL (70-105); SODIUM LEVEL 142 MEQ/L (136-145); TOTAL PROTEIN 7.3 GM/DL (6.4-8.2)
--- NOTE | 2016-11-22 18:18 | REP ---
Clinical: Renal colic. Findings: Liver, spleen, pancreas, bilateral adrenal glands and kidneys are normal for noncontrast evaluation. Specifically, there is no hydronephrosis, perinephric stranding, intrarenal or obstructing ureteral calculi. The patient is status post cholecystectomy. The enteric system is without obstruction or acute inflammatory process and a normal terminal ileum and appendix are identified in the right lower quadrant. Pelvis demonstrates normal bladder and age-appropriate uterus/adnexa. Sigmoid diverticula noted without acute diverticulitis. No free fluid or ascites. No free air. No obvious adenopathy. Abdominal aorta without aneurysm. Musculoskeletal structures are intact. Lung bases are clear. Impression: Normal noncontrast CT of the abdomen and pelvis. Signed by Codey Garcia MD 11/22/2016 06:08 P
[2016-11-22 18:25] VITALS: BP 127/64
== END 2016-11-22 18:42 | disposition home or self-care (01) ==
LOC: M ED 17:02
DX: R10.11 Right upper quadrant pain (principal); E66.9 Obesity, unspecified; I10 Essential (primary) hypertension; Z79.899 Other long term (current) drug therapy; Z88.0 Allergy status to penicillin; Z88.1 Allergy status to other antibiotic agents
CPT/HCPCS: 74176; 80048; 80076; 81001; 81025; 83690; 85025; 96374; 96375; 99284; J1885; J2405

== ENCOUNTER 2016-12-04 15:47 | Emergency (ER) | payer OTHER ==
[~2016-12-04] VITALS: Ht 177.8 cm; Wt 97.5 kg
[2016-12-04 15:47] VITALS: BP 171/95
[~2016-12-04 15:47] MED LIST changes: +DOXY100T
[2016-12-04] MEDS ORDERED: FLUT1SPR2 (15:55)
[2016-12-04] MEDS ORDERED: DULO1CAP (15:55)
== END 2016-12-04 16:59 | disposition home or self-care (01) ==
LOC: M ED 16:54
DX: F43.0 Acute stress reaction (principal); R51 Headache; Z90.49 Acquired absence of other specified parts of digestive tract; Z79.899 Other long term (current) drug therapy; Z88.0 Allergy status to penicillin; Z88.1 Allergy status to other antibiotic agents

== ENCOUNTER 2018-05-28 16:34 | Emergency (ER) | payer OTHER ==
[2018-05-28] MEDS: NS 1,000 ML IV (17:54)
[2018-05-28] MEDS: ONDANSETRON 4MG/2ML VIAL (J2405) IV (17:54)
[2018-05-28 17:58] LABS: BASO # 0.1 10^3/uL (0.0-0.2); BASO % 0.8 % (0.0-1.0); EOS # 0.3 10^3/uL (0.0-0.50); EOS % 2.3 % (0.0-3.0); HEMATOCRIT 45.2 % (36.0-47.0); HEMOGLOBIN 15.3 g/dl (12.0-15.5); IMMATURE GRANULOCYTE % 0.5 % (0-3.0); KETONE, URINE AUTO RFX NEGATIVE (NEGATIVE); LEUKOCYTE ESTERASE UR AUTO RFX TRACE (NEGATIVE); LYMPH # 2.8 10^3/uL (1.5-4.5); LYMPH % 21.7 % (24.0-44.0); MEAN CORPUSCULAR HEMOGLOBIN 29.6 pg (27.0-33.0); MEAN CORPUSCULAR HGB CONC 33.8 g/dl (32.0-36.5); MEAN CORPUSCULAR VOLUME 87.4 fl (80.0-96.0); MONO # 0.8 10^3/uL (0.0-0.8); MONO % 6.3 % (0.0-5.0); MUCUS, URINE RFX SMALL (NEGATIVE); NEUTROPHILS # 8.8 10^3/uL (1.8-7.7); NEUTROPHILS % 68.4 % (36.0-66.0); NITRITE, URINE AUTO RFX NEGATIVE (NEGATIVE); PLATELET COUNT, AUTOMATED 253 10^3/uL (150-450); RBC, URINE AUTO RFX 3 /HPF (0-3); RED BLOOD COUNT 5.17 10^6/uL (4.00-5.40); RED CELL DISTRIBUTION WIDTH 13.2 % (11.5-14.5); SQUAM EPITHELIAL CELL UR AURFX 2 /HPF (0-6); WBC, URINE AUTO RFX 2 /HPF (0-3); WHITE BLOOD COUNT 12.8 10^3/uL (4.0-10.0)
[2018-05-28] MEDS: MORPHINE 4 MG/ML 1ML VIAL/SYRINGE (J2270) IV ×2 (17:59→18:45)
[2018-05-28 18:10] LABS: INR 0.99; PROTHROMBIN TIME 13.2 SECONDS (12.1-14.4)
[2018-05-28 18:11] LABS: PARTIAL THROMBOPLASTIN TIME 30.9 SECONDS (25.4-37.6)
[2018-05-28 18:28] LABS: CONTROL LINE MONO INT CTR LINE PRESENT; MONO SCRN NEGATIVE (NEGATIVE)
[2018-05-28 18:29] LABS: ALBUMIN 3.9 GM/DL (3.2-5.2); ALKALINE PHOSPHATASE 85 U/L (45-117); ALT/SGPT 51 U/L (12-78); AMYLASE 34 U/L (25-115); ANION GAP 8 MEQ/L (8-16); AST/SGOT 25 U/L (7-37); BILIRUBIN,DIRECT < 0.1 MG/DL (0.0-0.2); BILIRUBIN,TOTAL 0.4 MG/DL (0.2-1.0); BLOOD UREA NITROGEN 8 MG/DL (7-18); CALCIUM LEVEL 8.6 MG/DL (8.5-10.1); CARBON DIOXIDE LEVEL 26 MEQ/L (21-32); CHLORIDE LEVEL 105 MEQ/L (98-107); CREATININE FOR GFR 0.68 MG/DL (0.55-1.30); GLOMERULAR FILTRATION RATE > 60.0 (>60); GLUCOSE, FASTING 120 MG/DL (70-100); LIPASE 117 U/L (73-393); POTASSIUM SERUM 3.5 MEQ/L (3.5-5.1); SODIUM LEVEL 139 MEQ/L (136-145); TOTAL PROTEIN 7.8 GM/DL (6.4-8.2)
[2018-05-28] MEDS ORDERED: ISOVUE-370 76% 100ML VIAL (Q9967) As Ordered (18:30)
[2018-05-28] MEDS: PANTOPRAZOLE 40MG INJ (PROTONIX) (C9113) IV (20:00)
[2018-05-28] MEDS: GI COCKTAIL 50ML BTL(HYOSCYAMINE/MAALOX/LIDOCAINE VISCOUS)(1:3:1) PO (20:00)
[2018-05-28] MEDS: KETOROLAC 30 MG/ML VIAL (J1885) IV (20:45)
== END 2018-05-28 22:33 | disposition home or self-care (01) ==
LOC: M ED 16:34
DX: R10.11 Right upper quadrant pain (principal); R11.0 Nausea; I10 Essential (primary) hypertension; Z87.19 Personal history of other diseases of the digestive system; Z87.442 Personal history of urinary calculi; Z88.0 Allergy status to penicillin; F17.210 Nicotine dependence, cigarettes, uncomplicated
CPT/HCPCS: C9113

== ENCOUNTER 2018-07-10 15:29 | Emergency (ER) | payer OTHER ==
[~2018-07-10] VITALS: Ht 177.8 cm; Wt 104.5 kg
[~2018-07-10 15:29] MED LIST changes: +DULO1CAP; +FLUT1SPR2; +GARL400T8 PO; +KETO10TAB PO; -MAGN250T2 PO; +MAGN250T7 PO; -METO12TA PO; +METO1TAB87 PO; +ZOFR4TAB14 PO; -[UNRECOGNIZED DRUG - CODE] PO
[2018-07-10] MEDS ORDERED: ONDANSETRON 4MG/2ML VIAL (J2405) IV ONE (16:00)
[2018-07-10] MEDS ORDERED: SUCRALFATE 1 GM TAB PO ONE (16:00)
[2018-07-10] MEDS ORDERED: GI COCKTAIL 50ML BTL(HYOSCYAMINE/MAALOX/LIDOCAINE VISCOUS)(1:3:1) PO ONE (16:00)
[2018-07-10 16:20] LABS: BASO # 0.1 10^3/uL (0.0-0.2); BASO % 0.7 % (0.0-1.0); EOS # 0.3 10^3/uL (0.0-0.50); EOS % 2.9 % (0.0-3.0); HEMOGLOBIN 14.7 g/dl (12.0-15.5); LYMPH # 2.3 10^3/uL (1.5-4.5); LYMPH % 19.4 % (24.0-44.0); MEAN CORPUSCULAR HEMOGLOBIN 28.9 pg (27.0-33.0); MEAN CORPUSCULAR HGB CONC 33.4 g/dl (32.0-36.5); MEAN CORPUSCULAR VOLUME 86.4 fl (80.0-96.0); MONO # 0.8 10^3/uL (0.0-0.8); MONO % 6.7 % (0.0-5.0); NEUTROPHILS # 8.3 10^3/uL (1.8-7.7); NEUTROPHILS % 69.9 % (36.0-66.0); PLATELET COUNT, AUTOMATED 231 10^3/uL (150-450); RED BLOOD COUNT 5.09 10^6/uL (4.00-5.40); WHITE BLOOD COUNT 11.8 10^3/uL (4.0-10.0)
[2018-07-10 16:49] LABS: ALBUMIN 3.9 GM/DL (3.2-5.2); ALT/SGPT 26 U/L (12-78); BILIRUBIN,DIRECT < 0.1 MG/DL (0.0-0.2); BILIRUBIN,TOTAL 0.3 MG/DL (0.2-1.0); BLOOD UREA NITROGEN 10 MG/DL (7-18); CARBON DIOXIDE LEVEL 25 MEQ/L (21-32); CHLORIDE LEVEL 107 MEQ/L (98-107); CREATININE FOR GFR 0.62 MG/DL (0.55-1.30); GLOMERULAR FILTRATION RATE > 60.0 (>60); GLUCOSE, FASTING 90 MG/DL (70-100); LIPASE 136 U/L (73-393); POTASSIUM SERUM 3.9 MEQ/L (3.5-5.1); SODIUM LEVEL 140 MEQ/L (136-145); TOTAL PROTEIN 7.5 GM/DL (6.4-8.2)
[2018-07-10] MEDS ORDERED: diphenhydrAMINE INJ 50MG/ML VIAL (J1200) IV STA (16:55)
[2018-07-10] MEDS ORDERED: ISOVUE-370 76% 100ML VIAL (Q9967) As Ordered ONE (17:00)
[2018-07-10] MEDS ORDERED: MORPHINE 4 MG/ML 1ML VIAL/SYRINGE (J2270) IV ONE (17:00)
[2018-07-10 17:29] VITALS: BP 137/84
[2018-07-10] MEDS ORDERED: CARA1TAB6 PO (17:32)
[2018-07-10] MEDS ORDERED: OMEP40CA2 PO (17:32)
--- NOTE | 2018-07-11 07:05 | REP ---
CT abdomen and pelvis with IV and without oral contrast: History: Right upper quadrant pain. Comparison study: May 28, 2018. CT contrast dose: 100 ml of intravenous Isovue [address] findings: Digital preliminary certified novell engineer radiograph shows clips in the right upper quadrant. The bowel gas pattern is normal. The lung bases are clear on axial CT images. There is mild diffuse fatty infiltration of the liver. There is a small 3 mm central right lobe hepatic cyst, unchanged. Spleen is normal in size and homogeneous in texture. No adrenal lesion is seen. No pancreatic abnormalities observed. The kidneys enhance symmetrically and appear morphologically intact. A normal appendix is seen draped across the iliac vessels in the central pelvis. There is a follicle cyst in the right ovary measuring 2.2 cm in diameter. No uterine abnormality or left ovarian abnormality is seen. Small and large intestinal bowel loops are normal in the abdomen and pelvis. Urinary bladder is unremarkable. No bony destructive lesion is seen. Impression: Status post cholecystectomy. Mild fatty infiltration of the liver. Normal appendix. No acute abdominal or pelvic abnormality. Electronically Signed by Colby Gannon MD 07/11/2018 09:06 A
== END 2018-07-10 17:39 | disposition home or self-care (01) ==
LOC: M ED 15:29
DX: R10.13 Epigastric pain (principal); R11.0 Nausea; I10 Essential (primary) hypertension; Z87.442 Personal history of urinary calculi; F17.210 Nicotine dependence, cigarettes, uncomplicated; Z88.0 Allergy status to penicillin; Z79.899 Other long term (current) drug therapy
CPT/HCPCS: 74177; 80048; 80076; 81001; 81025; 83690; 85025; 96374; 96375; 99284; J1200; J2270; J2405; Q9967

== ENCOUNTER 2018-08-20 13:07 | Day surgery (SDC) | payer OTHER ==
[~2018-08-20] VITALS: Ht 177.8 cm; Wt 109.3 kg
[~2018-08-20 13:07] MED LIST changes: +CARA1TAB6 PO; +COQ-100C2 PO; +GARL1000 PO; +IBUP200C25 PO; +MELA3TAB PO; +METO1TAB7 PO; +MULT1TAB10 PO; +NS 1,000 ML IV ONE; +OMEP40CA2 PO
[2018-08-20] MEDS ORDERED: LIDOCAINE 2% INJ 100 MG/5 ML SDV (FOR ANES.) As Ordered ONE ×2 (13:41→13:53)
[2018-08-20] MEDS ORDERED: PROPOFOL 200 MG/20 ML VIAL As Ordered ONE ×2 (13:41→13:46)
--- NOTE | 2018-08-20 14:01 | ROOR ---
Patient Name: Nhi Linares Procedure Date: 08/20/2018 1:38 PM Date of : 1985 Age: 33 Room: [facility] Gender: Female Note Status: Finalized Procedure: Upper GI endoscopy Indications: Dyspepsia, Heartburn, Suspected gastro-esophageal reflux disease Providers: Rohan Gagnon MD Referring MD: Justin HORNER Requesting Provider: Medicines: Monitored Anesthesia Care Complications: No immediate complications. Procedure: Pre-Anesthesia Assessment: - Prior to the procedure, a History and Physical was performed, and patient medications and allergies were reviewed. The patient is competent. The risks and benefits of the procedure and the sedation options and risks were discussed with the patient. All questions were answered and informed consent was obtained. Patient identification and proposed procedure were verified by the physician, the nurse and the anesthesiologist in the procedure room. Mental Status Examination: alert and oriented. Airway Examination: normal oropharyngeal airway and neck mobility. Respiratory Examination: clear to auscultation. CV Examination: normal. Prophylactic Antibiotics: The patient does not require prophylactic antibiotics. Prior Anticoagulants: The patient has taken no previous anticoagulant or antiplatelet agents. ASA Grade Assessment: II - A patient with mild systemic disease. After reviewing the risks and benefits, the patient was deemed in satisfactory condition to undergo the procedure. The anesthesia plan was to use monitored anesthesia care (MAC). Immediately prior to administration of medications, the patient was re-assessed for adequacy to receive sedatives. The heart rate, respiratory rate, oxygen saturations, blood pressure, adequacy of pulmonary ventilation, and response to care were monitored throughout the procedure. The physical status of the patient was re-assessed after the procedure. The Endoscope was introduced through the mouth, and advanced to the second part of duodenum. The upper GI endoscopy was accomplished without difficulty. The patient tolerated the procedure well. Findings: LA Grade A (one or more mucosal breaks less than 5 mm, not extending between tops of 2 mucosal folds) esophagitis with no bleeding was found in the distal esophagus. Biopsies were taken with a cold forceps for histology. Verification of patient identification for the specimen was done by the physician and nurse using the patient's name, date and medical record number. Estimated blood loss was minimal. Diffuse mild inflammation characterized by erythema and granularity was found in the gastric antrum. Biopsies were taken with a cold forceps for Helicobacter pylori testing. The duodenal bulb, second portion of the duodenum, area of the papilla, third portion of the duodenum and fourth portion of the duodenum were normal. Biopsies for histology were taken with a cold forceps for evaluation of celiac disease. Impression: - LA Grade A reflux esophagitis. Rule out Schroeder's esophagus. Biopsied. - Gastritis. Biopsied. - Normal duodenal bulb, second portion of the duodenum, area of the papilla, third portion of the duodenum and fourth portion of the duodenum. Biopsied. Recommendation: - Patient has a contact number available for emergencies. The signs and symptoms of potential delayed complications were discussed with the patient. Return to normal activities tomorrow. Written discharge instructions were provided to the patient. - Resume previous diet. - Continue present medications. - Await pathology results. - Based on the biopsy results you will receive a phone call from GI clinic in 2-3 weeks to review the pathology results AND/OR your results will be faxed to your Primary care physician. - Return to primary care physician. Rohan Gagnon MD Rohan Gagnon MD 08/20/2018 2:00:42 PM This report has been signed electronically. Number of Addenda: 0 Note Initiated On: 08/20/2018 1:38 PM Estimated Blood Loss: Estimated blood loss was minimal.
[2018-08-20 14:23] VITALS: BP 139/87
== END 2018-08-20 14:23 | disposition home or self-care (01) ==
LOC: M OPP 13:07
PROVIDERS: ATTEND Internal Medicine Gastroenterology
DX: R12 Heartburn (principal); K21.0 Gastro-esophageal reflux disease with esophagitis; K29.70 Gastritis, unspecified, without bleeding; Z79.899 Other long term (current) drug therapy; Z88.0 Allergy status to penicillin; Z80.0 Family history of malignant neoplasm of digestive organs; Z80.3 Family history of malignant neoplasm of breast; Z80.51 Family history of malignant neoplasm of kidney; F17.210 Nicotine dependence, cigarettes, uncomplicated

== ENCOUNTER 2018-10-21 14:39 | Emergency (ER) | payer OTHER ==
[~2018-10-21] VITALS: Ht 177.8 cm; Wt 108.7 kg
[~2018-10-21 14:39] MED LIST changes: -DULO30CA PO; +DULO30CA9 PO; +HYDR-3715 PO; -NORCOTAB PO; -NS 1,000 ML IV ONE; -SENN1TAB2 PO; +SENN1TAB40 PO
[2018-10-21] MEDS ORDERED: ONDANSETRON 4MG/2ML VIAL (J2405) IV ONE (15:45)
[2018-10-21] MEDS ORDERED: MORPHINE 4 MG/ML 1ML VIAL/SYRINGE (J2270) IV ONE (15:45)
[2018-10-21] MEDS ORDERED: NS 1,000 ML IV ONE (15:45)
[2018-10-21] MEDS ORDERED: KETOROLAC 30 MG/ML VIAL (J1885) IV ONE (16:00)
[2018-10-21 16:08] LABS: BASO # 0.1 10^3/uL (0.0-0.2); BASO % 0.7 % (0.0-1.0); EOS # 0.3 10^3/uL (0.0-0.50); EOS % 2.1 % (0.0-3.0); HEMATOCRIT 42.5 % (36.0-47.0); HEMOGLOBIN 14.4 g/dl (12.0-15.5); LYMPH # 2.5 10^3/uL (1.5-4.5); LYMPH % 20.9 % (24.0-44.0); MEAN CORPUSCULAR HGB CONC 33.9 g/dl (32.0-36.5); MEAN CORPUSCULAR VOLUME 85.7 fl (80.0-96.0); MONO # 0.6 10^3/uL (0.0-0.8); MONO % 5.2 % (0.0-5.0); NEUTROPHILS # 8.4 10^3/uL (1.8-7.7); NEUTROPHILS % 70.5 % (36.0-66.0); PLATELET COUNT, AUTOMATED 220 10^3/uL (150-450); RED BLOOD COUNT 4.96 10^6/uL (4.00-5.40); WHITE BLOOD COUNT 11.9 10^3/uL (4.0-10.0)
[2018-10-21 16:23] LABS: INR 1.05; PROTHROMBIN TIME 13.8 SECONDS (12.1-14.4)
[2018-10-21 17:03] LABS: ALBUMIN 3.8 GM/DL (3.2-5.2); ALT/SGPT 34 U/L (12-78); AMYLASE 35 U/L (25-115); BILIRUBIN,DIRECT 0.1 MG/DL (0.0-0.2); BILIRUBIN,TOTAL 0.4 MG/DL (0.2-1.0); BLOOD UREA NITROGEN 7 MG/DL (7-18); CALCIUM LEVEL 8.5 MG/DL (8.5-10.1); CARBON DIOXIDE LEVEL 26 MEQ/L (21-32); CHLORIDE LEVEL 106 MEQ/L (98-107); CREATININE FOR GFR 0.59 MG/DL (0.55-1.30); GLOMERULAR FILTRATION RATE > 60.0 (>60); GLUCOSE, FASTING 70 MG/DL (70-100); POTASSIUM SERUM 3.8 MEQ/L (3.5-5.1); SODIUM LEVEL 140 MEQ/L (136-145); TOTAL PROTEIN 7.2 GM/DL (6.4-8.2)
[2018-10-21] MEDS ORDERED: ZOFR4TAB16 PO (17:16)
[2018-10-21] MEDS ORDERED: PERC5TAB12 PO (17:16)
[2018-10-21 17:50] VITALS: BP 138/81
== END 2018-10-21 17:45 | disposition home or self-care (01) ==
LOC: M ED 14:39
DX: R10.11 Right upper quadrant pain (principal); R11.0 Nausea; I10 Essential (primary) hypertension; F17.210 Nicotine dependence, cigarettes, uncomplicated; Z88.0 Allergy status to penicillin; Z79.899 Other long term (current) drug therapy
CPT/HCPCS: 80048; 80076; 82150; 85025; 85610; 96361; 96374; 96375; 99284; J1885; J2270; J2405

== ENCOUNTER 2018-10-26 11:25 | Emergency (ER) | payer OTHER ==
[~2018-10-26] VITALS: Ht 177.8 cm; Wt 109.9 kg
[~2018-10-26 11:25] MED LIST changes: +PERC5TAB12 PO; +ZOFR4TAB16 PO
[2018-10-26] MEDS ORDERED: OXYC1TAB23 (11:33)
[2018-10-26] MEDS ORDERED: OMEP-221 (11:33)
[2018-10-26] MEDS ORDERED: ONDA4TAB5 (11:33)
[2018-10-26] MEDS: KETOROLAC 30 MG/ML VIAL (J1885) IV ONE (12:32)
[2018-10-26] MEDS: NS 1,000 ML IV ONE (12:32)
[2018-10-26] MEDS: ONDANSETRON 4MG/2ML VIAL (J2405) IV ONE (12:32)
[2018-10-26 12:58] LABS: ALBUMIN 4.2 GM/DL (3.2-5.2); ALT/SGPT 42 U/L (12-78); AMYLASE 35 U/L (25-115); BILIRUBIN,DIRECT < 0.1 MG/DL (0.0-0.2); BILIRUBIN,TOTAL 0.4 MG/DL (0.2-1.0); BLOOD UREA NITROGEN 11 MG/DL (7-18); CALCIUM LEVEL 8.8 MG/DL (8.5-10.1); CARBON DIOXIDE LEVEL 25 MEQ/L (21-32); CHLORIDE LEVEL 108 MEQ/L (98-107); CREATININE FOR GFR 0.71 MG/DL (0.55-1.30); GLOMERULAR FILTRATION RATE > 60.0 (>60); GLUCOSE, FASTING 109 MG/DL (70-100); LIPASE 155 U/L (73-393); POTASSIUM SERUM 4.6 MEQ/L (3.5-5.1); SODIUM LEVEL 140 MEQ/L (136-145); TOTAL PROTEIN 7.5 GM/DL (6.4-8.2)
[2018-10-26] MEDS ORDERED: MORPHINE 4 MG/ML 1ML VIAL/SYRINGE (J2270) IV ONE (13:00)
--- NOTE | 2018-10-26 13:30 | REP ---
RIGHT UPPER QUADRANT ULTRASOUND: Real-time sonographic evaluation of right upper quadrant performed and compared to prior study of 10/14/2018. Patient has had a prior cholecystectomy. There is expected prominence of the common bile duct at 8 mm. There is diffuse fibrofatty infiltration of liver with diffuse increased echotexture. There appears to be a subcentimeter hemangioma about 9 mm in diameter in the right lobe of the liver. There is a hypoechoic area in the liver in the region of the shirley hepatis which could represent a mass, as seen on prior study, measuring 3.1 x 2.7 x 2.9 cm. Pancreas could not be visualized due to overlying bowel gas and patient body habitus. Right kidney demonstrates no hydronephrosis with normal size 13.4 cm in length. Study is limited. IMPRESSION: Status post cholecystectomy. Diffuse fibrofatty infiltration of liver. Once again, there is a possible hypoechoic mass in the shirley hepatis region of the liver, 3.1 cm in maximum diameter. Electronically Signed by Otf Watosn MD 10/27/2018 04:41 P
[2018-10-26 13:41] LABS: BASO # 0.1 10^3/uL (0.0-0.2); BASO % 0.8 % (0.0-1.0); EOS # 0.4 10^3/uL (0.0-0.50); EOS % 3.7 % (0.0-3.0); HEMATOCRIT 40.1 % (36.0-47.0); HEMOGLOBIN 13.6 g/dl (12.0-15.5); LYMPH # 2.9 10^3/uL (1.5-4.5); MEAN CORPUSCULAR HEMOGLOBIN 29.5 pg (27.0-33.0); MEAN CORPUSCULAR HGB CONC 33.9 g/dl (32.0-36.5); MONO # 0.7 10^3/uL (0.0-0.8); MONO % 6.8 % (0.0-5.0); NEUTROPHILS # 6.5 10^3/uL (1.8-7.7); NEUTROPHILS % 61.2 % (36.0-66.0); PLATELET COUNT, AUTOMATED 218 10^3/uL (150-450); RED BLOOD COUNT 4.61 10^6/uL (4.00-5.40); WHITE BLOOD COUNT 10.6 10^3/uL (4.0-10.0)
[2018-10-26 13:54] VITALS: BP 132/80
--- NOTE | 2018-10-28 06:42 | ED PDOC ---
Post-Departure Follow-Up david saleem faxed formal report of liver us for fu Nixon Schmid MD October 28, 2018 06:42
== END 2018-10-26 14:59 | disposition home or self-care (01) ==
LOC: M ED 11:25
DX: R10.9 Unspecified abdominal pain (principal); I10 Essential (primary) hypertension
CPT/HCPCS: 76705; 80048; 80076; 81001; 81025; 82150; 83690; 85025; 87086; 96361; 96374; 96375; 99284; J1885; J2405

== ENCOUNTER → 2018-11-01 | Outpatient (CLI) | payer OTHER ==
[~2018-11-01] MED LIST changes: +OMEP-221; +ONDA4TAB5; +OXYC1TAB23; +PROHANCE 279.3MG/ML 15ML VIAL (A9576) As Ordered ONE; +PROHANCE 279.3MG/ML 5ML VIAL (A9576) As Ordered ONE
--- NOTE | 2018-11-01 16:58 | REP ---
MRI LIVER WITH AND WITHOUT CONTRAST: COMPARISON: CT 07/10/2018 and ultrasound 10/14/2018 and 10/26/2018 Multiple sequences were obtained in the axial and coronal planes prior to and following the intravenous administration of 19 mL ProHance. Possible mass was seen in the region of the shirley hepatis by ultrasound. On the MRI the liver appears mildly enlarged with a length of approximately 18 cm. There is diffuse signal throughout the liver which is characteristic for diffuse fatty infiltration. There are extensive areas of low signal on the out of phase images throughout the liver. There is a spared area in the region of the shirley hepatis near the gallbladder fossa at the site of the suspected mass by ultrasound. This spared parenchyma which is not fatty infiltrated would therefore have a more hypoechoic appearance by ultrasound and accounts for the mass like appearance by ultrasound. However no mass is seen on any sequence in this region of the liver. The patient has had a prior cholecystectomy. There is no biliary dilatation. The spleen, adrenals, pancreas and visualized kidneys appear unremarkable. There is no hydronephrosis. There is no adenopathy. No free fluid is seen. IMPRESSION: Diffuse fatty infiltration of the liver with mild hepatomegaly. The suspected mass in the region of the shirley hepatis by ultrasound corresponds to an area of spared parenchyma which is not fatty infiltrated. This accounts for the mass like appearance by ultrasound. No liver mass is seen. Electronically Signed by Otf Watson MD 11/02/2018 03:33 P
== END ==
LOC: M RAD 09:43
PROVIDERS: ATTEND Internal Medicine Gastroenterology
DX: R93.3 Abnormal findings on diagnostic imaging of other parts of digestive tract (principal); R10.11 Right upper quadrant pain; K76.0 Fatty (change of) liver, not elsewhere classified; R16.0 Hepatomegaly, not elsewhere classified
CPT/HCPCS: 74183; A9576

== ENCOUNTER 2018-12-15 21:51 | Emergency (ER) | payer OTHER ==
[~2018-12-15] VITALS: Ht 177.8 cm; Wt 113.6 kg
[~2018-12-15 21:51] MED LIST changes: -OMEP-221; +OMEP-221 PO; -PROHANCE 279.3MG/ML 15ML VIAL (A9576) As Ordered ONE; -PROHANCE 279.3MG/ML 5ML VIAL (A9576) As Ordered ONE
[2018-12-15] MEDS ORDERED: NAPR220C14 PO (21:57)
[2018-12-16] MEDS ORDERED: FLUORESCEIN OPHTH 1 MG STRIP OU ONE (00:45)
[2018-12-16] MEDS ORDERED: TETRACAINE 0.5% OPHTH SOLN 4ML OU ONE (00:45)
[2018-12-16 00:59] VITALS: BP 146/82
[2018-12-16] MEDS ORDERED: CYCLOPENTOLATE 1% OPHTH SOLN 2 ML BTL OU ONE (01:15)
[2018-12-16] MEDS ORDERED: ACETAMINOPHEN TAB 650MG DOSE (2X325MG) PO ONE (01:15)
== END 2018-12-16 01:20 | disposition home or self-care (01) ==
LOC: M ED 21:51
DX: H57.13 Ocular pain, bilateral (principal); I10 Essential (primary) hypertension; Z79.899 Other long term (current) drug therapy; Z88.0 Allergy status to penicillin; F17.210 Nicotine dependence, cigarettes, uncomplicated

== ENCOUNTER 2018-12-22 07:26 | Emergency (ER) | payer OTHER ==
[~2018-12-22] VITALS: Ht 177.8 cm; Wt 109.1 kg
[~2018-12-22 07:26] MED LIST changes: -DULO1CAP; +DULO1CAP4; -MELA3TAB PO; +MELA3TAB63 PO; +NAPR220C14 PO; -OMEP40CA2 PO; +OMEP40CA97 PO; +ONDA-83; -ONDA4TAB5; +SENN-53 PO; -SENN1TAB40 PO
[2018-12-22] MEDS ORDERED: ZYRTTAB8 PO (07:50)
[2018-12-22] MEDS ORDERED: NS 1,000 ML IV ONE (08:15)
--- NOTE | 2018-12-22 08:32 | REP ---
Clinical: Lower chest and abdominal pain . Comparison: 08/12/2016 . Technique: PA and lateral. Findings: The mediastinum and cardiac silhouette are normal. The lung mccullough are clear and without acute consolidation, effusion, or pneumothorax. The skeletal structures are intact and normal. Impression: 1. No acute cardiopulmonary process. Electronically Signed by Codey Garcia MD 12/22/2018 08:23 A
[2018-12-22 08:36] LABS: BASO # 0.1 10^3/uL (0.0-0.2); BASO % 0.9 % (0.0-1.0); EOS # 0.5 10^3/uL (0.0-0.50); EOS % 3.6 % (0.0-3.0); HEMATOCRIT 42.4 % (36.0-47.0); HEMOGLOBIN 14.6 g/dl (12.0-15.5); LYMPH # 2.6 10^3/uL (1.5-4.5); LYMPH % 19.1 % (24.0-44.0); MEAN CORPUSCULAR HEMOGLOBIN 29.1 pg (27.0-33.0); MEAN CORPUSCULAR HGB CONC 34.4 g/dl (32.0-36.5); MEAN CORPUSCULAR VOLUME 84.6 fl (80.0-96.0); MONO % 7.5 % (0.0-5.0); NEUTROPHILS # 9.2 10^3/uL (1.8-7.7); NEUTROPHILS % 68.2 % (36.0-66.0); PLATELET COUNT, AUTOMATED 224 10^3/uL (150-450); RED BLOOD COUNT 5.01 10^6/uL (4.00-5.40); WHITE BLOOD COUNT 13.5 10^3/uL (4.0-10.0)
[2018-12-22 08:48] LABS: INR 0.94; PROTHROMBIN TIME 12.3 SECONDS (11.8-14.0)
[2018-12-22 08:49] LABS: PARTIAL THROMBOPLASTIN TIME 29.8 SECONDS (25.0-38.4)
[2018-12-22 08:51] LABS: D-DIMER QUANT 366.9 ng/ml (<500)
[2018-12-22 09:02] LABS: BLOOD UREA NITROGEN 20 MG/DL (7-18); CALCIUM LEVEL 8.7 MG/DL (8.5-10.1); CARBON DIOXIDE LEVEL 26 MEQ/L (21-32); CHLORIDE LEVEL 109 MEQ/L (98-107); CK-MB VALUE MASS < 1.0 NG/ML (<3.6); CPK CREATINE PHOSPHOKINASE 125 U/L (26-192); CREATININE FOR GFR 0.73 MG/DL (0.55-1.30); GLOMERULAR FILTRATION RATE > 60.0 (>60); GLUCOSE, FASTING 94 MG/DL (70-100); POTASSIUM SERUM 5.6 MEQ/L (3.5-5.1); SODIUM LEVEL 139 MEQ/L (136-145); TROPONIN I < 0.02 NG/ML (< 0.10)
[2018-12-22] MEDS ORDERED: ISOVUE-370 76% 100ML VIAL (Q9967) As Ordered ONE (09:29)
--- NOTE | 2018-12-22 10:10 | REP ---
Soft-tissue neck CT study with IV contrast: History: Neck and throat pain. History of smoking. CT contrast dose: 75 ml of intravenous Isovue 370. CT findings: Preliminary digital canopy inspector radiograph is unremarkable. Parotid and submandibular glands are normal and symmetric. Thyroid lobes are normal and homogeneous. No glottic or subglottic airway lesion is seen. Epiglottis and aryepiglottic folds are intact. Tonsillar and peritonsillar soft tissues are unremarkable. There is no evidence of neck mass or adenopathy. No vascular abnormality is observed. Lower mouth structures are unremarkable. The visualized paranasal sinuses are clear. No intraorbital or intracranial soft tissue abnormality is seen. No bony destructive lesion is appreciated. Impression: Negative soft-tissue neck CT study. Electronically Signed by Colby Gannon MD 12/22/2018 10:17 A
[2018-12-22 10:52] LABS: CK-MB VALUE MASS < 1.0 NG/ML (<3.6); CPK CREATINE PHOSPHOKINASE 34 U/L (26-192); MB/CK RELATIVE INDEX 2.94 (< OR =4); POTASSIUM SERUM 4.3 MEQ/L (3.5-5.1); TROPONIN I < 0.02 NG/ML (< 0.10)
[2018-12-22] MEDS ORDERED: GI COCKTAIL 50ML BTL(HYOSCYAMINE/MAALOX/LIDOCAINE VISCOUS)(1:3:1) PO ONE (11:15)
[2018-12-22 11:39] VITALS: BP 134/74
--- NOTE | 2018-12-22 21:39 | ECGEPIP ---
[facility] - ED Test Date: 2018-12-22 Pat Name: ALEX RIVAS Department: Room: - Gender: Female Laboratory Tester: JShelbi : 1985 Requested By: CRUZITO Tavares PA-C Order Number: [id number] Reading MD: Christine Lynn Measurements Intervals [place] Rate: 58 P: 55 [place]: 163 QRS: 17 QRSD: 96 T: QT: 412 QTc: 407 Interpretive Statements SINUS BRADYCARDIA DECREASED RATE 08/12/16 Electronically Signed on 12-22-2018 21:39:13 EDT by Christine Lynn
[2019-01-10] MEDS ORDERED: LORA0.5T5 (22:43)
[2019-01-10] MEDS ORDERED: SERT50TA29 (22:43)
[2019-01-11] MEDS ORDERED: GARL500C10 PO (00:06)
[2019-01-11] MEDS ORDERED: SERT50TA29 PO (00:06)
[2019-01-11] MEDS ORDERED: LORA0.5T5 PO (00:06)
[2019-01-11] MEDS ORDERED: IBUP-1720 PO (00:06)
== END 2018-12-22 11:43 | disposition home or self-care (01) ==
LOC: M ED 07:26
DX: M54.2 Cervicalgia (principal); R00.1 Bradycardia, unspecified; I10 Essential (primary) hypertension; K21.9 Gastro-esophageal reflux disease without esophagitis; F41.9 Anxiety disorder, unspecified; F17.210 Nicotine dependence, cigarettes, uncomplicated; Z79.899 Other long term (current) drug therapy; Z87.442 Personal history of urinary calculi; Z88.0 Allergy status to penicillin
CPT/HCPCS: 70491; 71046; 80048; 82550; 82553; 84132; 84484; 85025; 85379; 85610; 85730; 93005; 96360; 96361; 99284; Q9967

== ENCOUNTER 2019-01-10 22:32 | Observation (INO) | payer OTHER ==
[~2019-01-10] VITALS: Ht 180.3 cm; Wt 106.9 kg
[~2019-01-10 22:32] MED LIST changes: +MELA3TAB PO; -MELA3TAB63 PO; +OMEP40CA2 PO; -OMEP40CA97 PO; -ONDA-83; +ONDA4TAB5; -SENN-53 PO; +SENN1TAB40 PO; +ZYRTTAB8 PO
[2019-01-10] MEDS ORDERED: LORA0.5T11 (22:43)
[2019-01-10] MEDS ORDERED: SERT-155 (22:43)
[2019-01-10 23:17] LABS: BASO # 0.1 10^3/uL (0.0-0.2); BASO % 1.1 % (0.0-1.0); EOS # 0.4 10^3/uL (0.0-0.50); HEMATOCRIT 42.3 % (36.0-47.0); HEMOGLOBIN 14.6 g/dl (12.0-15.5); LYMPH # 2.8 10^3/uL (1.5-4.5); LYMPH % 28.6 % (24.0-44.0); MEAN CORPUSCULAR HEMOGLOBIN 28.9 pg (27.0-33.0); MEAN CORPUSCULAR HGB CONC 34.5 g/dl (32.0-36.5); MEAN CORPUSCULAR VOLUME 83.8 fl (80.0-96.0); MONO # 0.7 10^3/uL (0.0-0.8); NEUTROPHILS # 5.9 10^3/uL (1.8-7.7); PLATELET COUNT, AUTOMATED 234 10^3/uL (150-450); RED BLOOD COUNT 5.05 10^6/uL (4.00-5.40); WHITE BLOOD COUNT 9.9 10^3/uL (4.0-10.0)
[2019-01-10 23:42] LABS: ALT/SGPT 38 U/L (12-78); BILIRUBIN,DIRECT 0.1 MG/DL (0.0-0.2); BILIRUBIN,TOTAL 0.3 MG/DL (0.2-1.0); BLOOD UREA NITROGEN 7 MG/DL (7-18); CALCIUM LEVEL 9.4 MG/DL (8.5-10.1); CARBON DIOXIDE LEVEL 30 MEQ/L (21-32); CHLORIDE LEVEL 107 MEQ/L (98-107); CREATININE FOR GFR 0.76 MG/DL (0.55-1.30); GLOMERULAR FILTRATION RATE > 60.0 (>60); GLUCOSE, FASTING 111 MG/DL (70-100); LIPASE 116 U/L (73-393); POTASSIUM SERUM 3.8 MEQ/L (3.5-5.1); SODIUM LEVEL 142 MEQ/L (136-145); TOTAL PROTEIN 7.4 GM/DL (6.4-8.2)
[2019-01-10 23:51] LABS: HCG, SERUM QUALITATIVE NEGATIVE (NEGATIVE)
[2019-01-11] MEDS ORDERED: SERT-155 PO (00:06)
[2019-01-11] MEDS ORDERED: MAGN400T2 PO (00:06)
[2019-01-11] MEDS ORDERED: CO Q100C2 PO (00:06)
[2019-01-11] MEDS ORDERED: IBUP-1091 PO (00:06)
[2019-01-11] MEDS ORDERED: LORA0.5T11 PO (00:06)
[2019-01-11] MEDS ORDERED: METO50TA7 PO (00:06)
[2019-01-11] MEDS ORDERED: RA B1TAB2 PO (00:06)
[2019-01-11] MEDS ORDERED: OMEP-221 PO (00:06)
[2019-01-11] MEDS ORDERED: GARL500C PO (00:06)
[2019-01-11] MEDS ORDERED: NS 1,000 ML IV SCH (02:49)
[2019-01-11] MEDS ORDERED: ACETAMINOPHEN TAB 650MG DOSE (2X325MG) PO PRN (03:00)
[2019-01-11] MEDS ORDERED: LORazepam 0.5 MG TAB PO PRN (03:00)
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
--- NOTE | 2019-01-11 04:03 | REPVR ---
EXAM: US Abdomen Complete EXAM DATE/TIME: 01/11/2019 1:42 AM CLINICAL HISTORY: 33 years old, female; Abdominal pain; Colic; Prior surgery; Surgery date: 6+ months; Surgery type: Cholecystectomy TECHNIQUE: Imaging protocol: Real-time ultrasound of the abdomen with image documentation. COMPARISON: SR - MRI ABD W/O FOL WITH 11/01/2018 11:04:34 AM LIVER US 10/26/2018 12:41 PM [place] - CT ABD/PEL W/IV CONTRAST ONLY 07/10/2018 4:56:27 PM FINDINGS: Liver: The echogenicity of the liver is increased, which is compatible with fatty liver infiltration. There is a 2.7 cm x 2.6 cm x 1.8 cm hypoechoic area adjacent to the shirley hepatis, which is compatible with an area of focal fatty sparing that is fairly similar in appearance compared to the prior ultrasound 10/26/2018. There is a 1.3 cm x 1.3 cm x 1.1 cm echogenic lesion in the right hepatic lobe, which may represent a hemangioma or focal fatty deposition that is fairly similar in appearance compared to the prior ultrasound on 10/26/2018. The contour of the liver is smooth. Gallbladder: The gallbladder has been removed. No fluid collection is seen in the gallbladder fossa. Common bile duct: No dilation (6 mm in diameter). No stones are identified in the imaged portion of the common bile duct. Pancreas: See Right Kidney Finding. Right kidney: The right kidney is normal in appearance and measures 12.6 cm in length. There is no renal cortical thinning. The renal cortical echogenicity is within normal limits. No renal lesion is seen. There is no hydronephrosis. No obvious stones are seen in the renal collecting system. Left kidney: The left kidney is normal in appearance and measures 11.8 cm in length. There is no renal cortical thinning. The renal cortical echogenicity is within normal limits. No renal lesion is seen. There is no hydronephrosis. No obvious stones are seen in the renal collecting system. Spleen: The spleen is unremarkable and measures 11 cm in length. Aorta: The imaged portion of the abdominal aorta is normal in caliber. Inferior vena cava: The imaged portion of the inferior vena cava is patent. Intraperitoneal space: No free fluid is seen from the images obtained. IMPRESSION: 1. No acute sonographic abnormality seen in the abdomen. 2. Fatty liver with focal fatty sparing adjacent to the shirley hepatis. Electronically signed by: Hebert Erazo On 01/11/2019 04:02:36 AM
[2019-01-11 05:00] VITALS: BP 140/77
[2019-01-11 06:37] LABS: HEMATOCRIT 38.5 % (36.0-47.0); HEMOGLOBIN 13.2 g/dl (12.0-15.5); MEAN CORPUSCULAR HEMOGLOBIN 28.8 pg (27.0-33.0); MEAN CORPUSCULAR HGB CONC 34.3 g/dl (32.0-36.5); MEAN CORPUSCULAR VOLUME 83.9 fl (80.0-96.0); PLATELET COUNT, AUTOMATED 181 10^3/uL (150-450); RED BLOOD COUNT 4.59 10^6/uL (4.00-5.40); WHITE BLOOD COUNT 7.9 10^3/uL (4.0-10.0)
[2019-01-11 07:13] LABS: ALBUMIN 3.4 GM/DL (3.2-5.2); ALT/SGPT 33 U/L (12-78); BILIRUBIN,TOTAL 0.5 MG/DL (0.2-1.0); BLOOD UREA NITROGEN 7 MG/DL (7-18); CALCIUM LEVEL 8.4 MG/DL (8.5-10.1); CARBON DIOXIDE LEVEL 30 MEQ/L (21-32); CHLORIDE LEVEL 109 MEQ/L (98-107); GLOMERULAR FILTRATION RATE > 60.0 (>60); GLUCOSE, FASTING 82 MG/DL (70-100); MAGNESIUM LEVEL 2.1 MG/DL (1.8-2.4); POTASSIUM SERUM 3.4 MEQ/L (3.5-5.1); SODIUM LEVEL 143 MEQ/L (136-145); TOTAL PROTEIN 6.5 GM/DL (6.4-8.2)
[2019-01-11 08:00] VITALS: BP 128/73
[2019-01-11] MEDS: METOPROLOL TART 50 MG TAB PO SCH ×2 (09:00→20:52)
[2019-01-11] MEDS: MAGNESIUM OXIDE 400 MG TAB (MAG-OX) PO SCH (09:08)
[2019-01-11] MEDS: OMEPRAZOLE 20 MG CAP PO SCH (09:08)
[2019-01-11] MEDS ORDERED: KETOROLAC 30 MG/ML VIAL (J1885) IV PRN (11:15)
[2019-01-11 12:00] VITALS: BP 123/73
[2019-01-11] MEDS ORDERED: SLF 3 ML SYR IV PRN (14:15)
[2019-01-11 16:00] VITALS: BP 139/80
[2019-01-11] MEDS ORDERED: ONDANSETRON 4MG/2ML VIAL (J2405) IV PRN (16:30)
[2019-01-11] MEDS ORDERED: GOLYTELY SOLN 4000 ML BTL PO ONE (17:00)
[2019-01-11] MEDS ORDERED: BISACODYL 5 MG TAB PO ONE (18:00)
[2019-01-11 20:00] VITALS: BP 148/83
[2019-01-11] MEDS: SLF 3 ML SYR IV SCH (20:53)
[2019-01-11] MEDS ORDERED: SERTRALINE HCL 50 MG TAB PO SCH (21:00)
--- NOTE | 2019-01-11 23:46 | CR.PDOC ---
General Date of Consultation: Jan 11, 2019 Referring Provider: MERCEDES QUINONES MD Attending Physician: NATAN MARTINEZ MD Consultation REASON FOR CONSULTATION/CHIEF COMPLAINT: RUQ abdominal pain, nausea, vomiting and for about 2 weeks HISTORY OF PRESENT ILLNESS: 33 Year old female patient with history of gallstone pancreatitis (cholecystectomy 05/2016) and heavy alcohol use who presents with about 2 weeks of severe epigastric and RUQ pain, nausea, decreased appetite, bloating and wate ry diarrhea. She states that her pain originally started 6 months ago and states that she had been drinking very heavily (3-4 bottles of wine a night) when the symptoms began. She underwent EGD on 08/20/18 which demonstrated Grade A reflux esophagitis with biopsies negative for H.pylori or other esophageal abnormality. The patient states that she generally abstained from alcohol around the time of the EGD and it got better, but on 30 of December she went out with friends and drank heavily. Her pain recurred the following morning, now accompanied by diarrhea, and has not improved since then with a consistent 7/10 severity. It is worst after eating, but does occur randomly throughout the day between meals. She reports a 20 lb unintentional weight loss during this time. She denies any melena or change in stool color, nor any hematemesis. ALLERGIES: Please see below. HOME MEDICATIONS: Please see below. PAST MEDICAL HISTORY: 1. History of gallstone pancreatitis 2. Long QT syndrome 3. History of Hypertension PAST SURGICAL HISTORY: 1. Laparoscopic Cholecystectomy 2015 2. x2 3. Tubal ligation 4. R femoral fracture and surgery 5. Facial reconstructive surgery FAMILY HISTORY: Father: [place] Mother: Cardiac issues Siblings: Brother also with Long QT syndrome SOCIAL HISTORY: Marital status and/or living arrangements: lives with Children: 2 Employment: none Tobacco use:former smoker ETOH: heavy. Reports 3-4 bottles of wine a night Illicit drug use: denies REVIEW OF SYSTEMS: CONSTITUTIONAL: Generally feels unwell, reports abdominal pain, shivering HEENT: No ear discharge/pain, no dysphagia CARDIOVASCULAR: No chest pain, no palpitations, no leg swelling RESPIRATORY: no difficulty breathing, no SOB, no wheezing, no cough GENITOURINARY: no hematuria, no burning during urination MUSCULOSKELETAL: no joint pain, patient is ambulating well GASTROINTESTINAL: right upper quadrant and epigastric abdominal pain, diarrhea, nausea, bloating, otherwise as stated above SKIN: no new rashes NEUROLOGICAL: no pain or loss of sensation PSYCHIATRIC: normal mood/affect ENDOCRINE: no cold intolerance HEMATOLOGIC/LYMPHATIC: no new bruising, no gum bleeding ALLERGIC/IMMUNOLOGIC: no rashes or lumps/bumps PHYSICAL EXAMINATION: VITAL SIGNS: Please see below. GENERAL APPEARANCE: laying in bed, appears stated age, calm, cooperative HEENT: non icteric sclerae, no pallor, normal oropharynx, no cervical lymphadenopathy RESPIRATORY: clear to auscultation bilaterally without any adventitious lung sounds appreciated CARDIOVASCULAR: RRR, no murmurs/rubs/gallops ABDOMEN: soft, obese, tender to deep palpation in RUQ and epigastric region, no masses, no hepatosplenomegaly, bowel sounds present in all quadrants EXTREMITIES: no pedal edema, pulses are palpable NEUROLOGICAL: no focal motor or sensory deficits. Moves all extremities well PSYCHIATRIC: normal mood/affect, AAOx3 SKIN: no rashes LABORATORY DATA: Normal H/H and liver panel. US abdomen: No acute sonographic abnormality seen in the abdomen. Fatty liver with focal fatty sparing adjacent to the shirley hepatis Impression: -- Right upper quadrant abdominal pain and epigastric pain - atypical colicky pain, but associated with diarrhea and chronic change in bowel habits and labs showing normal liver panel, Lipase and Ultrasound abdomen - no acute biliary abnormalities -- DDx -- r/o ischemic colitis vs IBD vs Chronic pancreatitis vs SOD vs functional dyspepsia. ( prior EGD negative for PUD). Recommendations: - Patient is educated about the test results, all possible differential diagnosis and all questions answered. - Clear liquid diet - Pain control with Toradol 15MG IV Q8H PRN - In view of severe pain requiring IV pain medication patient will continue inpatient therapy for now. - Will schedule for Colonoscopy tomorrow for change in bowel habits. - Patient is educated about the procedure, its indications, risks benefits and all alternatives including no intervention as well. Patient verbalized underst anding and gave informed consent for the procedure. - Ordered bowel prep for colonoscopy -- Golytely 4 liter -- start at 4 PM and complete by 8 AM. - Dulcolax 20 mg oral at 6:00 pm - NPO for procedure after 8 AM. - Please follow up procedure note for post procedure recommendations. Plan of care discussed with patient and primary team. Patient verbalized understanding and agreed with plan. Laboratory Data CBC/BMP Laboratory Tests 01/10/19 23:08 Red Blood Count 5.05, Mean Corpuscular Volume 83.8, Mean Corpuscular Hemoglobin 28.9, Mean Corpuscular Hemoglobin Concent 34.5, Red Cell Distribution Width 13.7, Neutrophils (%) (Auto) 59.0, Lymphocytes (%) (Auto) 28.6, Monocytes (%) (Auto) 7.0 H, Eosinophils (%) (Auto) 4.0 H, Basophils (%) (Auto) 1.1 H, Neutrophils # (Auto) 5.9, Lymphocytes # (Auto) 2.8, Monocytes # (Auto) 0.7, Eosinophils # (Auto) 0.4, Basophils # (Auto) 0.1 01/11/19 06:18 Red Blood Count 4.59, Mean Corpuscular Volume 83.9, Mean Corpuscular Hemoglobin 28.8, Mean Corpuscular Hemoglobin Concent 34.3, Red Cell Distribution Width 13.6, Calcium Level 8.4 L, Aspartate Amino Transf (AST/SGOT) 17, Alanine Aminotransferase (ALT/SGPT) 33, Alkaline Phosphatase 68, Total Bilirubin 0.5 #, Total Protein 6.5, Albumin 3.4 Allergies Coded Allergies: Penicillins (Verified Allergy, Unknown, 10/21/18) anaph Home Medications Scheduled Garlic (Garlic) 500 Mg Capsule, 1,000 MG PO DAILY, (Reported) Magnesium Oxide (Magnesium Oxide) 400 Mg Tablet, 400 MG PO DAILY, (Reported) Metoprolol Tartrate (Metoprolol Tartrate) 50 Mg Tablet, 50 MG PO BID, (Reported) Omeprazole (Omeprazole) 40 Mg Capsule.dr, 40 MG PO DAILY, (Reported) Sertraline HCl (Sertraline HCl) 50 Mg Tablet, 50 MG PO QHS, (Reported) Ubidecarenone (Co Q-10) 100 Mg Capsule, 100 MG PO DAILY, (Reported) Vitamin B Complex (Vitamin B Complex) 1 Each Tablet, 1 TAB PO DAILY, (Reported) Scheduled PRN Ibuprofen (Ibuprofen) 200 Mg Tablet, 800 MG PO TID PRN for PAIN, (Reported) Lorazepam (Lorazepam) 0.5 Mg Tablet, 0.5 MG PO BID PRN for ANXIETY, (Reported) Miscellaneous Medications Sertraline HCl (Sertraline HCl) 50 Mg Tablet, (Reported) RADHA SALAS MD Jan 11, 2019 11:57 NATAN MARTINEZ MD Jan 11, 2019 23:46
[2019-01-12] VITALS (7 sets, daily range): BP systolic 115–145; BP diastolic 62–90
[2019-01-12] MEDS: SLF 3 ML SYR IV SCH ×2 (05:36→13:49)
[2019-01-12] MEDS: OMEPRAZOLE 20 MG CAP PO SCH (07:59)
[2019-01-12] MEDS: METOPROLOL TART 50 MG TAB PO SCH (08:00)
[2019-01-12] MEDS: MAGNESIUM OXIDE 400 MG TAB (MAG-OX) PO SCH (08:00)
[2019-01-12 10:17] LABS: HEMATOCRIT 40.1 % (36.0-47.0); HEMOGLOBIN 13.4 g/dl (12.0-15.5); MEAN CORPUSCULAR HEMOGLOBIN 28.5 pg (27.0-33.0); MEAN CORPUSCULAR HGB CONC 33.4 g/dl (32.0-36.5); MEAN CORPUSCULAR VOLUME 85.3 fl (80.0-96.0); PLATELET COUNT, AUTOMATED 192 10^3/uL (150-450); WHITE BLOOD COUNT 7.9 10^3/uL (4.0-10.0)
[2019-01-12 10:49] LABS: ALBUMIN 3.6 GM/DL (3.2-5.2); ALT/SGPT 32 U/L (12-78); BILIRUBIN,TOTAL 0.4 MG/DL (0.2-1.0); BLOOD UREA NITROGEN 4 MG/DL (7-18); CALCIUM LEVEL 8.7 MG/DL (8.5-10.1); CARBON DIOXIDE LEVEL 30 MEQ/L (21-32); CHLORIDE LEVEL 108 MEQ/L (98-107); CREATININE FOR GFR 0.68 MG/DL (0.55-1.30); GLOMERULAR FILTRATION RATE > 60.0 (>60); GLUCOSE, FASTING 87 MG/DL (70-100); POTASSIUM SERUM 3.6 MEQ/L (3.5-5.1); SODIUM LEVEL 142 MEQ/L (136-145); TOTAL PROTEIN 6.9 GM/DL (6.4-8.2)
[2019-01-12] MEDS ORDERED: PROPOFOL 200 MG/20 ML VIAL As Ordered ONE ×2 (15:28→16:16)
[2019-01-12] MEDS ORDERED: LIDOCAINE 2% INJ 100 MG/5 ML SDV (FOR ANES.) As Ordered ONE (15:28)
--- NOTE | 2019-01-12 16:26 | ROOR ---
Patient Name: Nhi Linares Procedure Date: 01/12/2019 3:46 PM Date of : 1985 Age: 33 Room: Main OR Gender: Female Note Status: Finalized Procedure: Colonoscopy Indications: Abdominal pain in the right upper quadrant, Lower abdominal pain, Change in bowel habits Providers: Rohan Gagnon MD Referring MD: Justin Benoit Requesting Provider: Medicines: Monitored Anesthesia Care Complications: No immediate complications. Procedure: Pre-Anesthesia Assessment: - Prior to the procedure, a History and Physical was performed, and patient medications and allergies were reviewed. The patient is competent. The risks and benefits of the procedure and the sedation options and risks were discussed with the patient. All questions were answered and informed consent was obtained. Patient identification and proposed procedure were verified by the physician, the nurse and the anesthesiologist in the procedure room. Mental Status Examination: alert and oriented. Airway Examination: normal oropharyngeal airway and neck mobility. Respiratory Examination: clear to auscultation. CV Examination: normal. Prophylactic Antibiotics: The patient does not require prophylactic antibiotics. Prior Anticoagulants: The patient has taken no previous anticoagulant or antiplatelet agents. ASA Grade Assessment: II - A patient with mild systemic disease. After reviewing the risks and benefits, the patient was deemed in satisfactory condition to undergo the procedure. The anesthesia plan was to use monitored anesthesia care (MAC). Immediately prior to administration of medications, the patient was re-assessed for adequacy to receive sedatives. The heart rate, respiratory rate, oxygen saturations, blood pressure, adequacy of pulmonary ventilation, and response to care were monitored throughout the procedure. The physical status of the patient was re-assessed after the procedure. The Colonoscope was introduced through the anus and advanced to the terminal ileum, with identification of the appendiceal orifice and IC valve. The colonoscopy was performed without difficulty. The patient tolerated the procedure well. The quality of the bowel preparation was good. The terminal ileum, ileocecal valve, appendiceal orifice, and rectum were photographed. Scope insertion time was 3 minutes. Scope withdrawal time was 8 minutes. The total duration of the procedure was 11 minutes. Findings: The perianal and digital rectal examinations were normal. The terminal ileum appeared normal. Three sessile polyps were found in the recto-sigmoid colon and descending colon. The polyps were 5 to 6 mm in size. These polyps were removed with a cold biopsy forceps. Resection and retrieval were complete. Verification of patient identification for the specimen was done by the physician and nurse using the patient's name, date and medical record number. Estimated blood loss was minimal. Non-bleeding external and internal hemorrhoids were found during retroflexion. The hemorrhoids were small. Normal mucosa was found in the entire colon. Biopsies for histology were taken with a cold forceps from the right colon, left colon, transverse colon and rectosigmoid colon for evaluation of microscopic colitis. Impression: - The examined portion of the ileum was normal. - Three 5 to 6 mm polyps at the recto-sigmoid colon and in the descending colon, removed with a cold biopsy forceps. Resected and retrieved. - Non-bleeding external and internal hemorrhoids. - Normal mucosa in the entire examined colon. Biopsied. Recommendation: - Patient has a contact number available for emergencies. The signs and symptoms of potential delayed complications were discussed with the patient. Return to normal activities tomorrow. Written discharge instructions were provided to the patient. - High fiber diet. - Continue present medications. - Await pathology results. - Repeat colonoscopy in 5-10 years for surveillance based on pathology results. - Return to GI clinic 1 - 2 weeks. Please call GI clinic @ [phone] for apppointment date and time. - Return to primary care physician. Rohan Gagnon MD Rohan Gagnon MD 01/12/2019 4:26:18 PM Electronically signed by Rohan Gagnon MD Number of Addenda: 0 Note Initiated On: 01/12/2019 3:46 PM Estimated Blood Loss: Estimated blood loss was minimal.
[2019-01-12] MEDS ORDERED: ONDANSETRON 4MG/2ML VIAL (J2405) IV PRN (16:45)
[2019-01-12] MEDS ORDERED: LR 1,000 ML IV SCH (16:45)
--- NOTE | 2019-01-12 23:28 | DS.PDOC ---
Discharge Summary General Date of Admission Jan 10, 2019 at 22:33 Date of Discharge January 12 Specialist/Consultants Involve: ROHAN GAGNON MD Specialist/Consultants Involve Colonoscopy 01/12/19 Findings: The perianal and digital rectal examinations were normal. The terminal ileum appeared normal. Three sessile polyps were found in the recto-sigmoid colon and descending colon. The polyps were 5 to 6 mm in size. These polyps were removed with a cold biopsy forceps. Resection and retrieval were complete. Verification of patient identification for the specimen was done by the physician and nurse using the patient's name, date and medical record number. Estimated blood loss was minimal. Non-bleeding external and internal hemorrhoids were found during retroflexion. The hemorrhoids were small. Normal mucosa was found in the entire colon. Biopsies for histology were taken with a cold forceps from the right colon, left colon, transverse colon and rectosigmoid colon for evaluation of microscopic colitis. Impression: - The examined portion of the ileum was normal. - Three 5 to 6 mm polyps at the recto-sigmoid colon and in the descending colon, removed with a cold biopsy forceps. Resected and retrieved. - Non-bleeding external and internal hemorrhoids. - Normal mucosa in the entire examined colon. Biopsied. Recommendation: - Patient has a contact number available for emergencies. The signs and symptoms of potential delayed complications were discussed with the patient. Return to normal activities tomorrow. Written discharge instructions were provided to the patient. - High fiber diet. - Continue present medications. - Await pathology results. - Repeat colonoscopy in 5-10 years for surveillance based on pathology results. - Return to GI clinic 1 - 2 weeks. Please call GI clinic @ [phone] for apppointment date and time. - Return to primary care physician. Roahn Gagnon MD Discharge Summary PROCEDURES PERFORMED DURING STAY: Colonoscopy on 01/12/19. ADMITTING DIAGNOSES: 1. Abdominal pain DISCHARGE DIAGNOSES: As above COMPLICATIONS/CHIEF COMPLAINT: Abdominal Pain. HISTORY OF PRESENT ILLNESS: [As per initial H&P]. 33-year-old female with past medical history of anxiety/depression and GERD pre sented to the ER with a chief complaint of right upper quadrant abdominal pain. The patient does have a history of gallstone pancreatitis, status post cholecystectomy back in 2015. The patient states that she has been having right upper quadrant pain since April 2018. Since then, the patient has had an ultrasound of the abdomen/liver, multiple CT scans of the abdomen, and an MRI of the abdomen. She follows with Dr. Gagnon of GI who performed an EGD in July 2018. To this date, there has not been any acute pathology found to explain her pain based on the records available in the EMR. The patient reports that her pain has fluctuated in intensity during this time. She describes the pain as sharp, persistent, and associated with eating. She also reports a fluctuation of her weight during this time. She endorses that her abdominal pain in the right upper quadrant has gotten worse over the last 2 weeks. She states that she has been having a liquid only diet, but this has not helped. She lost 15 pounds during this time. Also, the patient states that she has been having greasy stools. She denies any fevers, vomiting, sick contacts, recent travel, ingestion of foreign foods. She denies any family history of GI disease. She reports that she has never had a colonoscopy before. The patient was sent in by GI for further evaluation. She will be admitted to the hospitalist service for the same. HOSPITAL COURSE: Pt was admitted for recurrent Right upper quadrant abdominal pain and epigastric, diarrhea and chronic changes in bowel habits. Initial work up including labs and US were within acceptable range. and labs showing normal, her last EGD was negative for PUD. GI consult was requested, and initially the DDx of ischemic colitis vs IBD vs Chronic pancreatitis vs SOD vs functional dyspepsia were concerned. Therefore, Colonoscopy was performed which revealed three 5-6 mm polyps at rectosigmoid ad descending colon. The polyps were removed and sent to pathology. Normal mucosa was also biopsied. Pt abdominal pain improved over the course of hospital stay. She was medically optimized for being discharged. DISCHARGE MEDICATIONS: Please see below. ALLERGIES: Please see below. PHYSICAL EXAMINATION ON DISCHARGE: VITAL SIGNS: Please see below. General Exam: Positive: Alert, Cooperative, No Acute Distress ENT Exam: Positive: Atraumatic, Mucous membranes. moist/pink Neck Exam: Negative: JVD Chest Exam: Positive: Clear to auscultation, Normal air movement Heart Exam: Positive: Rate Normal, Normal S1, Normal S2 Abdomen Exam: Positive: Soft, mild Tenderness Extremity Exam: Negative: Tenderness, Swelling LABORATORY DATA: Please see below. IMAGING: * Abdominal US 01/11/19 IMPRESSION: 1. No acute sonographic abnormality seen in the abdomen. 2. Fatty liver with focal fatty sparing adjacent to the shirley hepatis. PROGNOSIS: Fair ACTIVITY: [As tolerated]. DIET: High fiber DISCHARGE PLAN: DISPOSITION: 01 Home, Self-Care. DISCHARGE INSTRUCTIONS: 1. High fiber diet ITEMS TO FOLLOWUP ON ON OUTPATIENT: 1. Follow with PCP 2. Follow with GI clinic in two weeks DISCHARGE CONDITION: Stable, abdominal pain improved, tolerated diet TIME SPENT ON DISCHARGE: 30 minutes. Vital Signs/I&Os Vital Signs Date Time Temp Pulse Resp B/P (MAP) Pulse Ox O2 Delivery O2 Flow Rate FiO2 01/12/19 19:00 97.7 60 18 142/66 (91) 98 01/11/19 03:08 Room Air I&O- Last 24 Hours up to 6 AM 01/12/19 06:00 Intake Total 5245 ml Output Total 1250 ml Balance 3995 ml Laboratory Data Labs 24H Laboratory Tests 2 01/12/19 09:53: Nucleated Red Blood Cells % (auto) 0.0, Anion Gap 4L, Glomerular Filtration Rate > 60.0, Blood Urea Nitrogen 4L, Creatinine 0.68, Sodium Level 142, Potassium Level 3.6, Chloride Level 108H, Carbon Dioxide Level 30, Calcium Level 8.7, Aspartate Amino Transf (AST/SGOT) 17, Alanine Aminotransferase (ALT/SGPT) 32, Alkaline Phosphatase 72, Total Bilirubin 0.4, Total Protein 6.9, Albumin 3.6, Albumin/Globulin Ratio 1.09 CBC/BMP Laboratory Tests 01/12/19 09:53 Red Blood Count 4.70, Mean Corpuscular Volume 85.3, Mean Corpuscular Hemoglobin 28.5, Mean Corpuscular Hemoglobin Concent 33.4, Red Cell Distribution Width 13.4, Calcium Level 8.7, Aspartate Amino Transf (AST/SGOT) 17, Alanine Aminotransferase (ALT/SGPT) 32, Alkaline Phosphatase 72, Total Bilirubin 0.4, Total Protein 6.9, Albumin 3.6 Microbiology Microbiology 01/10/19 Urine Culture - Final, Complete Discharge Medications Scheduled Garlic (Garlic) 500 Mg Capsule, 1,000 MG PO DAILY, (Reported) Magnesium Oxide (Magnesium Oxide) 400 Mg Tablet, 400 MG PO DAILY, (Reported) Metoprolol Tartrate (Metoprolol Tartrate) 50 Mg Tablet, 50 MG PO BID, (Reported) Omeprazole (Omeprazole) 40 Mg Capsule.dr, 40 MG PO DAILY, (Reported) Sertraline HCl (Sertraline HCl) 50 Mg Tablet, 50 MG PO QHS, (Reported) Ubidecarenone (Co Q-10) 100 Mg Capsule, 100 MG PO DAILY, (Reported) Vitamin B Complex (Vitamin B Complex) 1 Each Tablet, 1 TAB PO DAILY, (Reported) Scheduled PRN Ibuprofen (Ibuprofen) 200 Mg Tablet, 800 MG PO TID PRN for PAIN, (Reported) Lorazepam (Lorazepam) 0.5 Mg Tablet, 0.5 MG PO BID PRN for ANXIETY, (Reported) Miscellaneous Medications Sertraline HCl (Sertraline HCl) 50 Mg Tablet, (Reported) Allergies Coded Allergies: Penicillins (Verified Allergy, Unknown, 10/21/18) TARA Garcia MD Jan 12, 2019 23:28
--- NOTE | 2019-01-18 09:21 | IPNPDOC ---
Text Note Date of Service The patient was seen on 01/11/19. NOTE Pt is pleasant lady sitting in bed comfortable. no acute distress. Pt is awake and alert. Denies any abdominal pain, denies nausea /vomiting/dyspnea. General Exam: Positive: Alert, Cooperative, No Acute Distress ENT Exam: Positive: Atraumatic, Mucous membr. moist/pink Neck Exam: Negative: JVD Chest Exam: Positive: Clear to auscultation, Normal air movement Heart Exam: Positive: Rate Normal, Normal S1, Normal S2 Abdomen Exam: Positive: Soft, Tenderness (mild tenderness to deep palpation in the right upper quadrant. No rebound tenderness, guarding, or rigidity noted. All other quadrants without any pain on palpation.) Extremity Exam: Negative: Tenderness, Swelling Psych Exam: Positive: Oriented x 3 Vital Signs Date Time Temp Pulse Resp B/P (MAP) Pulse Ox O2 Delivery O2 Flow Rate FiO2 01/11/19 03:08 57 20 129/78 (95) 96 Room Air 01/10/19 22:32 97.2 A/P RUQ Abd Pain of Unclear Etiology Previous U/S of the Abd/Liver, CT Scan of the Abd/Pel, and MRI of the Abdomen since 04/2018 noted s/p EGD in 07/2018 suggestive of reflux esophagitis, biopsies negative Laboratory values relatively unremarkable We will keep the patient nothing by mouth until she is seen by GI IV fluid hydration ordered GI plan colonoscopy Anxiety/depression Continue Ativan when necessary, and Zoloft GERD Continue PPI DVT prophylaxis Ambulation encouraged, SCDs/TEDs VS,Fishbone, I+O VS, Fishbone, I+O Vital Signs Date Time Temp Pulse Resp B/P (MAP) Pulse Ox O2 Delivery O2 Flow Rate FiO2 01/12/19 19:00 97.7 60 18 142/66 (91) 98 TARA DELGADILLO MD Jan 18, 2019 09:21
== END 2019-01-12 19:10 | disposition home or self-care (01) ==
LOC: M ED 22:32 → M ED INP 22:33 → M PED 01-11 04:48
PROVIDERS: ADMIT Internal Medicine; ATTEND Internal Medicine
DX: D12.5 Benign neoplasm of sigmoid colon (principal); D12.3 Benign neoplasm of transverse colon; K64.4 Residual hemorrhoidal skin tags; K64.8 Other hemorrhoids; R19.4 Change in bowel habit; R11.2 Nausea with vomiting, unspecified; R19.7 Diarrhea, unspecified; Z87.19 Personal history of other diseases of the digestive system; R63.4 Abnormal weight loss; I45.81 Long QT syndrome; I10 Essential (primary) hypertension; F17.200 Nicotine dependence, unspecified, uncomplicated; K76.0 Fatty (change of) liver, not elsewhere classified; L40.9 Psoriasis, unspecified; F41.9 Anxiety disorder, unspecified; F32.9 Major depressive disorder, single episode, unspecified; K21.9 Gastro-esophageal reflux disease without esophagitis; Z86.14 Personal history of Methicillin resistant Staphylococcus aureus infection; Z87.440 Personal history of urinary (tract) infections; Z88.0 Allergy status to penicillin; Z79.899 Other long term (current) drug therapy
CPT/HCPCS: 36415; 45380; 76700; 80048; 80053; 80076; 81001; 83690; 83735; 84703; 85025; 85027; 87086; 88305; 96361; 96374; 99284; J1885

== ENCOUNTER 2019-04-16 14:52 | Emergency (ER) | payer OTHER ==
[~2019-04-16] VITALS: Ht 180.3 cm; Wt 101.2 kg
[2019-04-16 14:52] VITALS: BP 152/82
[~2019-04-16 14:52] MED LIST changes: +CO Q100C2 PO; +GARL500C10 PO; +IBUP-1720 PO; +LORA0.5T11; +LORA0.5T11 PO; +MAGN400T2 PO; -MELA3TAB PO; +MELA3TAB63 PO; +METO50TA7 PO; -OMEP40CA2 PO; +OMEP40CA97 PO; +RA B1TAB2 PO; +SENN-53 PO; -SENN1TAB40 PO; +SERT50TA29; +SERT50TA29 PO
[2019-04-16] MEDS ORDERED: CLIN300C5 (14:58)
[2019-04-16] MEDS ORDERED: CHOL4PW (15:06)
[2019-04-16] MEDS ORDERED: DOXY-350 PO (16:28)
== END 2019-04-16 16:36 | disposition home or self-care (01) ==
LOC: M ED 14:52
DX: K04.7 Periapical abscess without sinus (principal); J02.9 Acute pharyngitis, unspecified; T36.8X5A Adverse effect of other systemic antibiotics, initial encounter; F17.210 Nicotine dependence, cigarettes, uncomplicated; Z87.820 Personal history of traumatic brain injury; I10 Essential (primary) hypertension; N80.9 Endometriosis, unspecified; Z88.0 Allergy status to penicillin; Z88.1 Allergy status to other antibiotic agents; Z79.899 Other long term (current) drug therapy